=== PATIENT | male | born 1955 | race Caucasian/White ===

== ENCOUNTER 2021-03-09 00:13 | Observation (INO) | payer OTHER ==
[~2021-03-09] VITALS: Ht 177.8 cm; Wt 156.7 kg
[~2021-03-09 00:13] MED LIST: ACET325 PO; ACET500 PO; ALLO100 PO; ALLO300 PO; AMLO10 PO; AMLO5 PO; AMOCLA875 PO; ATEN100 PO; ATOR40TA PO; Aspir 8181 MG PO; Atenolol-Chlor1 EACH PO; CHLO25B PO; DECARA1250 MC1 PO; DOC250 PO; DOCU100 PO; Diflucan100 MG PO; FISH OIL 1,0001 EAC1 PO; FISH OIL 1,2001 EAC7 PO; Flonase 0.05% N16 GM; GLIP10 PO; GLUCOPHAGE1000 M1 PO; Hair, Skin & N1 EACH PO; JARDIANCE25 MG PO; LIDO5TO; LISI20 PO; MELA3 PO; METF500 PO; Multivitamin1 EAC1 PO; OSTEO BI-FLEX1 EAC2 PO; Omega 3 Fish O1 EACH PO; Prozac20 MG PO; SIMV40 PO; TERA5 PO; WARF10 PO; ZESTRIL40 MG PO
[2021-03-09 01:02] LABS: BASOPHILS ABSOLUTE AUTO 0.04 K/mm3 (0.00-0.23); BASOPHILS PERCENT AUTO 0 % (0-2); EOSINOPHILS ABSOLUTE AUTO 0.07 K/mm3 (0.00-0.68); EOSINOPHILS PERCENT AUTO 0 % (0-6); Hematocrit 29.8 % (37.0-53.0); Hemoglobin 9.6 g/dL (13.5-17.5); IMMATURE GRAN ABSOLUTE AUTO 0.09 K/mm3 (0.00-0.10); IMMATURE GRAN PERCENT AUTO 1 % (0-1); LYMPHOCYTES ABSOLUTE AUTO 0.91 K/mm3 (0.84-5.20); LYMPHOCYTES PERCENT AUTO 6 % (21-46); MONOCYTES ABSOLUTE AUTO 1.28 K/mm3 (0.16-1.47); MONOCYTES PERCENT AUTO 8 % (4-13); Mean Corpuscular HGB 28.1 pg (26.0-34.0); Mean Corpuscular HGB Conc 32.2 g/dL (31.5-36.5); Mean Corpuscular Volume 87 fL (80-100); Mean Platelet Volume 11.8 fL (9.1-12.4); NEUTROPHILS ABSOLUTE AUTO 14.09 K/mm3 (1.96-9.15); NEUTROPHILS PERCENT AUTO 86 % (41-73); Platelet Count 178 K/mm3 (150-400); RDW Coefficient Variation 13.8 % (11.7-14.2); RDW Standard Deviation 44.2 fL (35.1-46.3); Red Blood Cell Count 3.42 M/mm3 (4.30-5.90); White Blood Cell Count 16.48 K/mm3 (4.00-11.30)
[2021-03-09 01:22] LABS: Albumin, Blood 2.2 g/dL (3.4-5.0); Albumin/Globulin Ratio 0.5 (0.8-1.8); Bilirubin, Total 0.6 mg/dL (0.1-1.0); Bun/Creatinine Ratio 33.9 (12.0-20.0); Calcium, Blood 8.8 mg/dL (8.5-10.1); Creatinine, Blood 1.24 mg/dL (0.60-1.20); Globulin, Blood 4.2 g/dL (2.2-4.0); Potassium, Blood 4.1 mmol/L (3.5-5.5); Total Protein, Blood 6.4 g/dL (6.4-8.2); Troponin I 0.024 ng/mL (0.000-0.040)
[2021-03-09 03:30] LABS: Magnesium, Blood 1.7 mg/dL (1.6-2.4)
[2021-03-09 03:51] LABS: Influenza A, PCR NEGATIVE (NEGATIVE); Influenza B, PCR NEGATIVE (NEGATIVE); Resp Syncytial Virus, PCR NEGATIVE (NEGATIVE); SARS-Cov-2 (COVID-19) PCR, MMC NEGATIVE (NEGATIVE)
[2021-03-09 05:11] LABS: BASOPHILS ABSOLUTE AUTO 0.04 K/mm3 (0.00-0.23); BASOPHILS PERCENT AUTO 0 % (0-2); EOSINOPHILS ABSOLUTE AUTO 0.02 K/mm3 (0.00-0.68); EOSINOPHILS PERCENT AUTO 0 % (0-6); Hematocrit 27.5 % (37.0-53.0); IMMATURE GRAN ABSOLUTE AUTO 0.11 K/mm3 (0.00-0.10); IMMATURE GRAN PERCENT AUTO 1 % (0-1); LYMPHOCYTES ABSOLUTE AUTO 0.62 K/mm3 (0.84-5.20); LYMPHOCYTES PERCENT AUTO 4 % (21-46); MONOCYTES ABSOLUTE AUTO 1.59 K/mm3 (0.16-1.47); MONOCYTES PERCENT AUTO 10 % (4-13); Mean Corpuscular HGB 28.2 pg (26.0-34.0); Mean Corpuscular HGB Conc 32.7 g/dL (31.5-36.5); Mean Corpuscular Volume 86 fL (80-100); Mean Platelet Volume 11.5 fL (9.1-12.4); NEUTROPHILS ABSOLUTE AUTO 12.96 K/mm3 (1.96-9.15); NEUTROPHILS PERCENT AUTO 85 % (41-73); Platelet Count 175 K/mm3 (150-400); RDW Coefficient Variation 13.9 % (11.7-14.2); RDW Standard Deviation 43.4 fL (35.1-46.3); Red Blood Cell Count 3.19 M/mm3 (4.30-5.90); White Blood Cell Count 15.34 K/mm3 (4.00-11.30)
[2021-03-09 05:55] LABS: D-Dimer, Quantitative 11.24 mg/L FEU (0.00-0.52); International Normalized Ratio 1.18; Prothrombin Time Results 12.3 Sec (9.7-11.5)
[2021-03-09 06:18] LABS: Alanine Aminotransfer (ALT/SGP 89 U/L (12-78); Albumin, Blood 2.2 g/dL (3.4-5.0); Albumin/Globulin Ratio 0.6 (0.8-1.8); Alk Phos 78 U/L (50-136); Anion Gap 8 mmol/L (6-16); Aspartate Aminotrans (AST/SGOT 29 U/L (12-37); Bilirubin, Total 0.5 mg/dL (0.1-1.0); Blood Urea Nitrogen 38 mg/dL (8-24); Bun/Creatinine Ratio 34.2 (12.0-20.0); CO2, Blood 21 mmol/L (21-32); Calcium, Blood 8.6 mg/dL (8.5-10.1); Chloride, Blood 112 mmol/L (98-108); Creatinine, Blood 1.11 mg/dL (0.60-1.20); Globulin, Blood 3.4 g/dL (2.2-4.0); Glomerular Filtration Rate >60 (60-); Glucose, Blood 176 mg/dL (70-99); Potassium, Blood 4.1 mmol/L (3.5-5.5); Sodium, Blood 141 mmol/L (136-145); Total Protein, Blood 5.6 g/dL (6.4-8.2)
[2021-03-09 08:27] LABS: Troponin I 0.039 ng/mL (0.000-0.040)
[2021-03-09] MEDS ORDERED: ALLO100 PO (11:03)
[2021-03-09] MEDS ORDERED: AMLO10 PO (11:04)
[2021-03-09] MEDS ORDERED: ATEN100 PO (11:04)
[2021-03-09] MEDS ORDERED: CHLO25B PO (11:05)
[2021-03-09] MEDS ORDERED: Colace250 MG PO (11:06)
--- NOTE | 2021-03-09 11:54 | NUR ---
Echocardiogram using 0.60ml of Definity contrast performed.
--- NOTE | 2021-03-09 12:00 | NUR ---
CARE ASSUMPTION PATIENT ARRIVED FROM ED APROX 1000 AND WAS ABLE TO TRANSFER TO THE PCU BED FROM ED BED VIA A STAND BY ASSIST. PATIENT IS A/OX4. VSS. TELE AFIB. PATIENT REPORTS NO CHEST PAIN/PRESSURE, HEADACHES, NUMBNESS OR TINGLING IN LOWER EXTREMITIES, OR PAIN. PATIENT HAS SHORTNESS OF BREATH WITH EXERTION. PATIENT REPORTS NUMBNESS TO RIGHT HAND FROM A "BOTCHED CARPAL TUNNEL SURGERY". PATIENT HAS HEPARIN DRIP INFUSING AT 15 U/KG/HR. PATIENT HAS CARDIZEM DRIP INFUSING AT 5MLS/HR. BED IN LOWEST POSITION AND CALL LIGHT WITHIN REACH. WILL CONTINUE TO MONITOR AND PROVIDE CARE.
--- NOTE | 2021-03-09 13:58 | NUR ---
Upon receiving an admit referral for spiritual care, I visit patient. Patient tells me about his medical issues and the plan going forward. Patient talks about his of 43 years and his 3 grown daughters and his 3 grandchildren. Patient then shares about his personal struggles and inner pain and about his spiritual distress revolving around his [employer]. I listening empathically, hear confession, highlight patient's successes and provide spiritual guidance, grief/emotional support, gentle diet counselor and prayer. Patient responds well and shows signs of catharsis. I will continue to assist patient in processing the emotional/spiritual aspects of dealing with his medical issues.
[2021-03-09 16:30] LABS: Troponin I 0.043 ng/mL (0.000-0.040)
--- NOTE | 2021-03-09 17:11 | NUR ---
SHIFT SUMMARY NO ACUTE CHANGES THIS SHIFT. HEPARIN DRIP DISCONTINUED DUE TO ORAL ANTICOAGULANTS NOW. CARDIZEM INFUSING AT 5MLS/HR. CALL LIGHT WITHIN REACH AND BED IN LOWEST POSITION. WILL CONTINUE TO MONITOR AND PROVIDE CARE UNTIL HAND OFF WITH NEXT SHIFT.
[2021-03-09 18:59] LABS: Appearance, Urine Clear (Clear); Bilirubin, Urine Neg (Neg); Blood, Urine 1+ (Neg); Color, Urine Yellow (P-Yellow); Glucose Qualitative, Urine 4+ (Neg); Ketones, Urine Neg (Neg); Leukocyte Esterase, Urine Neg (Neg); Nitrite, Urine Neg (Neg); Protein, Urine 2+ (Neg); Specific Gravity, Urine 1.015 (1.003-1.022); Urobilinogen, Urine NORM (Normal)
[2021-03-09 19:44] LABS: Red Blood Cells, Urine 0-2 /hpf (0-2); White Blood Cells, Urine 0-2 /hpf (0-5)
[2021-03-09 19:46] LABS: Bacteria Few /hpf; Hyaline Casts 0-2 /lpf (0-2); Squamous Epithelial Cells Few /hpf (Few)
[2021-03-10 04:10] LABS: BASOPHILS ABSOLUTE AUTO 0.02 K/mm3 (0.00-0.23); BASOPHILS PERCENT AUTO 0 % (0-2); EOSINOPHILS ABSOLUTE AUTO 0.09 K/mm3 (0.00-0.68); EOSINOPHILS PERCENT AUTO 1 % (0-6); Hematocrit 28.7 % (37.0-53.0); Hemoglobin 9.1 g/dL (13.5-17.5); IMMATURE GRAN ABSOLUTE AUTO 0.07 K/mm3 (0.00-0.10); IMMATURE GRAN PERCENT AUTO 1 % (0-1); LYMPHOCYTES ABSOLUTE AUTO 0.65 K/mm3 (0.84-5.20); LYMPHOCYTES PERCENT AUTO 5 % (21-46); MONOCYTES ABSOLUTE AUTO 1.64 K/mm3 (0.16-1.47); MONOCYTES PERCENT AUTO 12 % (4-13); Mean Corpuscular HGB 27.4 pg (26.0-34.0); Mean Corpuscular HGB Conc 31.7 g/dL (31.5-36.5); Mean Corpuscular Volume 86 fL (80-100); Mean Platelet Volume 11.4 fL (9.1-12.4); NEUTROPHILS ABSOLUTE AUTO 10.93 K/mm3 (1.96-9.15); NEUTROPHILS PERCENT AUTO 82 % (41-73); Platelet Count 183 K/mm3 (150-400); RDW Coefficient Variation 13.8 % (11.7-14.2); RDW Standard Deviation 43.9 fL (35.1-46.3); Red Blood Cell Count 3.32 M/mm3 (4.30-5.90)
[2021-03-10 04:26] LABS: Anion Gap 7 mmol/L (6-16); Blood Urea Nitrogen 33 mg/dL (8-24); CO2, Blood 22 mmol/L (21-32); Calcium, Blood 8.8 mg/dL (8.5-10.1); Chloride, Blood 111 mmol/L (98-108); Creatinine, Blood 1.03 mg/dL (0.60-1.20); Glomerular Filtration Rate >60 (60-); Glucose, Blood 165 mg/dL (70-99); Sodium, Blood 140 mmol/L (136-145)
--- NOTE | 2021-03-10 05:49 | NUR ---
SHIFT SUMMARY NO ACUTE CHANGES. PT AXO. IN AFIB 100'S, STARTED ON CARDIZEM GTT @5, NOW @10. BP STABLE. PT WEARING 2-4LNC OR 2L BLEEDIN TO CPAP WITH SPO2 >94%. OTHERWISE, PT HAS BEEN RESTING THROUGHOUT SHIFT. FOUND A LITTLE BLOOD ON URINAL. A TINY OPEN CUT ON PT'S TESTICLE FOUND, NO NEW BLEEDING NOTED. OTHERWISE, BED ALARM IN PLACE. PT RESTING OFF AND ON.
--- NOTE | 2021-03-10 06:11 | NUR ---
ISOLATION INFECTION CONTROL CALLED TATING PT DID NOT NEED STOOL PANEL DUE TO NOT HAVING BM X24 HOURS.
--- NOTE | 2021-03-10 09:37 | NUR ---
Pt HR hitting 70-80s, titrated cardizem gtt from 10mg/hr to 5gm/hr.
--- NOTE | 2021-03-10 09:46 | NUR ---
Pt remained in 70s on 5mg/hr of cardizem, turned off gtt for now. HR 90-100s off the cardizem gtt. VSS on RA.
--- NOTE | 2021-03-10 10:58 | NUR ---
Pt remains off the cardizem gtt, HR 80s.
[2021-03-10] MEDS ORDERED: METO50 PO (12:21)
[2021-03-10] MEDS ORDERED: XARELTO15 MG PO (12:23)
[2021-03-10] MEDS ORDERED: XARELTO20 MG PO (12:24)
--- NOTE | 2021-03-10 13:43 | NUR ---
Shift note: Pt is A&Ox 4, pleasant with cares. VSS on RA during the day and CPAP at night. Tele: afib was 100-120 this AM on cardizem gtt 10mg/hr. Dose of metoprolol was increased this AM. Titrated off the cardizem gtt about 0945. HR was dropping into 70s on cardizem gtt. Now HR has been 80-100s off the cardizem gtt. CBGs 157-161, covered per sliding scale. PO xaralto given per orders. D/C home with as ride.
== END 2021-03-10 14:44 | disposition home or self-care (01) ==
LOC: ER 00:13 → ERHOLD 00:14 → PCU 00:14
PROVIDERS: Emergency Medicine; Family Medicine; Student in an Organized Health Care Education/Training Program; ADMIT Internal Medicine
DX: I48.91 Unspecified atrial fibrillation (principal); R19.7 Diarrhea, unspecified; I26.99 Other pulmonary embolism without acute cor pulmonale; R74.8 Abnormal levels of other serum enzymes; R94.4 Abnormal results of kidney function studies; R79.1 Abnormal coagulation profile; E11.9 Type 2 diabetes mellitus without complications; I10 Essential (primary) hypertension; D64.9 Anemia, unspecified; N40.0 Benign prostatic hyperplasia without lower urinary tract symptoms; I25.10 Atherosclerotic heart disease of native coronary artery without angina pectoris; Z95.2 Presence of prosthetic heart valve; Z95.1 Presence of aortocoronary bypass graft; Z87.891 Personal history of nicotine dependence; Z88.6 Allergy status to analgesic agent; Z88.8 Allergy status to other drugs, medicaments and biological substances; Z79.82 Long term (current) use of aspirin; Z79.899 Other long term (current) drug therapy; Z20.822 Contact with and (suspected) exposure to COVID-19
CPT/HCPCS: 0241U; 36415; 71046; 71260; 80048; 80053; 81001; 82550; 82947; 83605; 83735; 83880; 84145; 84484; 85025; 85379; 85520; 85610; 93005; 93010; 93306; 94660; 94761; 94762; 96376; A9270; C8929; G0378; J1644; J7030; Q9957; Q9967

== ENCOUNTER 2021-03-13 11:03 | Inpatient (IN) | payer OTHER, MEDICARE ==
[~2021-03-13] VITALS: Ht 180.3 cm; Wt 155.0 kg
[~2021-03-13 11:03] MED LIST changes: +Colace250 MG PO; +METO50 PO; +XARELTO15 MG PO; +XARELTO20 MG PO
[2021-03-13 12:58] LABS: BASOPHILS ABSOLUTE AUTO 0.05 K/mm3 (0.00-0.23); BASOPHILS PERCENT AUTO 0 % (0-2); EOSINOPHILS ABSOLUTE AUTO 0.06 K/mm3 (0.00-0.68); EOSINOPHILS PERCENT AUTO 0 % (0-6); Hematocrit 31.1 % (37.0-53.0); Hemoglobin 10.1 g/dL (13.5-17.5); IMMATURE GRAN ABSOLUTE AUTO 0.14 K/mm3 (0.00-0.10); IMMATURE GRAN PERCENT AUTO 1 % (0-1); LYMPHOCYTES ABSOLUTE AUTO 1.18 K/mm3 (0.84-5.20); LYMPHOCYTES PERCENT AUTO 7 % (21-46); MONOCYTES ABSOLUTE AUTO 1.75 K/mm3 (0.16-1.47); MONOCYTES PERCENT AUTO 11 % (4-13); Mean Corpuscular HGB 27.3 pg (26.0-34.0); Mean Corpuscular HGB Conc 32.5 g/dL (31.5-36.5); Mean Corpuscular Volume 84 fL (80-100); Mean Platelet Volume 11.3 fL (9.1-12.4); NEUTROPHILS ABSOLUTE AUTO 13.06 K/mm3 (1.96-9.15); NEUTROPHILS PERCENT AUTO 80 % (41-73); Platelet Count 236 K/mm3 (150-400); RDW Coefficient Variation 14.1 % (11.7-14.2); RDW Standard Deviation 43.4 fL (35.1-46.3); White Blood Cell Count 16.24 K/mm3 (4.00-11.30)
[2021-03-13 13:37] LABS: Alanine Aminotransfer (ALT/SGP 115 U/L (12-78); Albumin, Blood 2.4 g/dL (3.4-5.0); Albumin/Globulin Ratio 0.6 (0.8-1.8); Alk Phos 96 U/L (50-136); Anion Gap 10 mmol/L (6-16); Aspartate Aminotrans (AST/SGOT 35 U/L (12-37); Bilirubin, Total 0.5 mg/dL (0.1-1.0); Blood Urea Nitrogen 32 mg/dL (8-24); Bun/Creatinine Ratio 30.8 (12.0-20.0); CO2, Blood 23 mmol/L (21-32); Calcium, Blood 8.7 mg/dL (8.5-10.1); Chloride, Blood 105 mmol/L (98-108); Creatinine, Blood 1.04 mg/dL (0.60-1.20); Globulin, Blood 3.8 g/dL (2.2-4.0); Glomerular Filtration Rate >60 (60-); Glucose, Blood 167 mg/dL (70-99); Potassium, Blood 3.9 mmol/L (3.5-5.5); Sodium, Blood 138 mmol/L (136-145); Total Protein, Blood 6.2 g/dL (6.4-8.2)
--- NOTE | 2021-03-13 21:12 | NUR ---
REPORT RECIEVED FRO ZACHARY ED RN AT 2044. ZACHARY STS EKG JUST GOT DONE, PT APPEARS TO HAVE AFIB RVR. RELAYS CONCERN IF PT IS APPROPRIATE WITH MED STATUS SINCE DR. MCCOY HAS NOT BEEN INFORMED OF THE RESULT. NOTIFIED NURSING ELECTRONICS LEAD AND CHARGE NURSE. ZACHARY RN WILL NOTIFY ADMITING DR. MCCOY PRIOR TO TRANSFER. AWAITING FOR AN UPDATE.
--- NOTE | 2021-03-13 21:15 | NUR ---
2109 - ZACHARY RN CALLED BACK NOTIFY CHARGE NURSE PRABHAKAR THAT WILL CONTINUE TO TRANSFER PT TO MED STATUS IN SURG UNIT AT THIS TIME. ZACHARY ALSO MENTIONED PT HR UP TO 130'S WITH MOVEMENT AND WITH EXERTION DYSPNEA. REPEAT EKG TO BE DONE BY ER NURSE ZACHARY. WAITING FOR PT TO BE TRANSFERED IN ROOM.
[2021-03-14 01:47] LABS: Source, Urine Clean Catch
[2021-03-14 01:50] LABS: Bilirubin, Urine Neg (Neg); Blood, Urine Neg (Neg); Glucose Qualitative, Urine 4+ (Neg); Ketones, Urine Neg (Neg); Leukocyte Esterase, Urine Neg (Neg); Nitrite, Urine Neg (Neg); Protein, Urine Neg (Neg); Urobilinogen, Urine NORM (Normal)
[2021-03-14 01:58] LABS: Appearance, Urine Clear (Clear); Color, Urine Yellow (P-Yellow)
[2021-03-14 04:46] LABS: BASOPHILS ABSOLUTE AUTO 0.03 K/mm3 (0.00-0.23); BASOPHILS PERCENT AUTO 0 % (0-2); EOSINOPHILS ABSOLUTE AUTO 0.06 K/mm3 (0.00-0.68); EOSINOPHILS PERCENT AUTO 0 % (0-6); Hematocrit 29.7 % (37.0-53.0); Hemoglobin 9.8 g/dL (13.5-17.5); IMMATURE GRAN ABSOLUTE AUTO 0.15 K/mm3 (0.00-0.10); IMMATURE GRAN PERCENT AUTO 1 % (0-1); LYMPHOCYTES ABSOLUTE AUTO 1.34 K/mm3 (0.84-5.20); LYMPHOCYTES PERCENT AUTO 8 % (21-46); MONOCYTES ABSOLUTE AUTO 1.83 K/mm3 (0.16-1.47); MONOCYTES PERCENT AUTO 12 % (4-13); Mean Corpuscular HGB 27.7 pg (26.0-34.0); Mean Corpuscular Volume 84 fL (80-100); Mean Platelet Volume 10.7 fL (9.1-12.4); NEUTROPHILS PERCENT AUTO 79 % (41-73); Platelet Count 207 K/mm3 (150-400); RDW Standard Deviation 42.9 fL (35.1-46.3); Red Blood Cell Count 3.54 M/mm3 (4.30-5.90); White Blood Cell Count 15.91 K/mm3 (4.00-11.30)
[2021-03-14 05:39] LABS: Alanine Aminotransfer (ALT/SGP 98 U/L (12-78); Albumin, Blood 2.4 g/dL (3.4-5.0); Albumin/Globulin Ratio 0.7 (0.8-1.8); Alk Phos 90 U/L (50-136); Anion Gap 12 mmol/L (6-16); Aspartate Aminotrans (AST/SGOT 29 U/L (12-37); Bilirubin, Total 0.5 mg/dL (0.1-1.0); Blood Urea Nitrogen 34 mg/dL (8-24); Bun/Creatinine Ratio 32.1 (12.0-20.0); CO2, Blood 23 mmol/L (21-32); Calcium, Blood 8.5 mg/dL (8.5-10.1); Chloride, Blood 105 mmol/L (98-108); Creatinine, Blood 1.06 mg/dL (0.60-1.20); Globulin, Blood 3.6 g/dL (2.2-4.0); Glomerular Filtration Rate >60 (60-); Glucose, Blood 151 mg/dL (70-99); Potassium, Blood 3.5 mmol/L (3.5-5.5); Sodium, Blood 140 mmol/L (136-145)
--- NOTE | 2021-03-14 05:48 | NUR ---
ARRIVED FROM ED TO MISSY UNIT AT 2120 PT TRANSPORTED VIA STRETCHER. AOX4. WEARS MASK APPEARS COMFORTABLE AND NONDISTRESSED. PT STARTED EXPIRIENCING DYSPNEA WITH EXERTION UPON TRANSFER TO BED. PT ABLE TO TRANSFER HIMSELF, SBA. O2 SATS HAS BEEN WNL. VSS EXCEPT FOR HR ON 110-120'S. TELE IN PLACED. AFIB/AFLUTTER AT 120'S UPON ARRIVAL. PT DENIES CHEST PAIN, NUMBNESS, TINGLING SENSATION, NAUSEA AND VOMITING. IV ON L AC FLUSING AND PATENT. PT USE URINAL WITH ASSISTANCE BECAUSE HE WAS UNABLE TO REACH DOWN. CPAP ORDER HX RENE. MEDS RECONCILED WITH OVER THE PHONE. REORIENT IN ROOM. CALL LIGHT WITHIN REACH. WILL CONTINUE TO MONITOR PATIENT.
--- NOTE | 2021-03-14 05:57 | NUR ---
SHIFT SUMMARY NO ACUTE CHANGES SINCE PT CAME IN TO UNIT (SEE PREVIOUS NOTE). VSS. PT DENIES CP AND SOB. TELE IN PLACED, AFIB AT 120'S PER TELE. PT HAS BEEN RESTING COMFORTABLE IN BED. USE CALL LIGHT APPROPRIATELY. VOID ADEQUATELY WITHOUT ANY ISSUE. USE URINAL TO VOID. PT WEARS CPAP AT NIGHT. REPORTS FEELING UNCOMFORTABLE WITH HOSPITAL CPAP, UNABLE TO SLEEP WELL. PT REQUEST 2L N/C THIS MORNING FOR SLEEP.CALL LIGHT WITHIN REACH. WILL PROVIDE REPORT TO ONCOMING NURSE.
--- NOTE | 2021-03-14 13:31 | NUR ---
Echocardiogram completed.
[2021-03-15 04:28] LABS: BASOPHILS ABSOLUTE AUTO 0.04 K/mm3 (0.00-0.23); BASOPHILS PERCENT AUTO 0 % (0-2); EOSINOPHILS ABSOLUTE AUTO 0.22 K/mm3 (0.00-0.68); EOSINOPHILS PERCENT AUTO 2 % (0-6); Hematocrit 28.8 % (37.0-53.0); Hemoglobin 9.3 g/dL (13.5-17.5); IMMATURE GRAN ABSOLUTE AUTO 0.13 K/mm3 (0.00-0.10); IMMATURE GRAN PERCENT AUTO 1 % (0-1); LYMPHOCYTES ABSOLUTE AUTO 1.11 K/mm3 (0.84-5.20); LYMPHOCYTES PERCENT AUTO 8 % (21-46); MONOCYTES ABSOLUTE AUTO 1.78 K/mm3 (0.16-1.47); MONOCYTES PERCENT AUTO 13 % (4-13); Mean Corpuscular HGB 27.8 pg (26.0-34.0); Mean Corpuscular HGB Conc 32.3 g/dL (31.5-36.5); Mean Corpuscular Volume 86 fL (80-100); Mean Platelet Volume 10.4 fL (9.1-12.4); NEUTROPHILS ABSOLUTE AUTO 9.97 K/mm3 (1.96-9.15); NEUTROPHILS PERCENT AUTO 75 % (41-73); Platelet Count 216 K/mm3 (150-400); RDW Coefficient Variation 14.1 % (11.7-14.2); RDW Standard Deviation 43.9 fL (35.1-46.3); Red Blood Cell Count 3.35 M/mm3 (4.30-5.90); White Blood Cell Count 13.25 K/mm3 (4.00-11.30)
[2021-03-15 04:46] LABS: Alanine Aminotransfer (ALT/SGP 88 U/L (12-78); Albumin, Blood 2.2 g/dL (3.4-5.0); Albumin/Globulin Ratio 0.6 (0.8-1.8); Alk Phos 79 U/L (50-136); Anion Gap 8 mmol/L (6-16); Aspartate Aminotrans (AST/SGOT 27 U/L (12-37); Bilirubin, Total 0.4 mg/dL (0.1-1.0); Blood Urea Nitrogen 33 mg/dL (8-24); Bun/Creatinine Ratio 35.1 (12.0-20.0); CO2, Blood 27 mmol/L (21-32); Calcium, Blood 9.1 mg/dL (8.5-10.1); Chloride, Blood 105 mmol/L (98-108); Creatinine, Blood 0.94 mg/dL (0.60-1.20); Glomerular Filtration Rate >60 (60-); Glucose, Blood 140 mg/dL (70-99); Potassium, Blood 3.5 mmol/L (3.5-5.5); Sodium, Blood 140 mmol/L (136-145); Total Protein, Blood 6.2 g/dL (6.4-8.2)
--- NOTE | 2021-03-15 04:56 | NUR ---
PT IS ALERT AND ORIENTED X4. NO CHEST PAIN. NO SOB. VOIDING. VSS. TELE: A FIB ON THE LOW 100S. LAST VS, HR WAS 110. LEFT AC IV INFILTRATED AND MIDLINE WAS PLACED IN. PT IS AD CLIFFORD BASELINE. NEEDS ASSISTANCE WITH URINAL.
[2021-03-15 05:04] LABS: Vancomycin, Trough 23.1 ug/mL (5.0-10.0)
--- NOTE | 2021-03-16 04:26 | NUR ---
PT IS ALERT AND ORIENTED X4. TELE: A FIB 90s. NO CHEST PAIN. NO SOB. NO C/O PAIN. NPO SINCE MIDNIGHT. 3L OF 02; SATS MID 90s. VOIDING. VSS. HEMATOLOGY CALLED WITH BLOOD CULTURE RESULTS OF GRAM POSITIVE COCCI IN CLUSTERS FROM 03/13/21.
[2021-03-16 05:02] LABS: BASOPHILS ABSOLUTE AUTO 0.04 K/mm3 (0.00-0.23); BASOPHILS PERCENT AUTO 0 % (0-2); EOSINOPHILS ABSOLUTE AUTO 0.23 K/mm3 (0.00-0.68); EOSINOPHILS PERCENT AUTO 2 % (0-6); Hematocrit 28.5 % (37.0-53.0); Hemoglobin 9.1 g/dL (13.5-17.5); IMMATURE GRAN ABSOLUTE AUTO 0.13 K/mm3 (0.00-0.10); IMMATURE GRAN PERCENT AUTO 1 % (0-1); LYMPHOCYTES ABSOLUTE AUTO 1.35 K/mm3 (0.84-5.20); LYMPHOCYTES PERCENT AUTO 11 % (21-46); MONOCYTES ABSOLUTE AUTO 1.42 K/mm3 (0.16-1.47); MONOCYTES PERCENT AUTO 12 % (4-13); Mean Corpuscular HGB 27.3 pg (26.0-34.0); Mean Corpuscular HGB Conc 31.9 g/dL (31.5-36.5); Mean Corpuscular Volume 86 fL (80-100); Mean Platelet Volume 10.3 fL (9.1-12.4); NEUTROPHILS PERCENT AUTO 74 % (41-73); Platelet Count 215 K/mm3 (150-400); RDW Coefficient Variation 14.1 % (11.7-14.2); RDW Standard Deviation 44.1 fL (35.1-46.3); Red Blood Cell Count 3.33 M/mm3 (4.30-5.90); White Blood Cell Count 11.97 K/mm3 (4.00-11.30)
[2021-03-16 05:22] LABS: Albumin, Blood 2.1 g/dL (3.4-5.0); Anion Gap 6 mmol/L (6-16); Blood Urea Nitrogen 29 mg/dL (8-24); Bun/Creatinine Ratio 33.7 (12.0-20.0); CO2, Blood 27 mmol/L (21-32); Calcium, Blood 8.7 mg/dL (8.5-10.1); Chloride, Blood 106 mmol/L (98-108); Creatinine, Blood 0.86 mg/dL (0.60-1.20); Glomerular Filtration Rate >60 (60-); Glucose, Blood 155 mg/dL (70-99); Magnesium, Blood 1.8 mg/dL (1.6-2.4); Phosphorus, Blood 3.1 mg/dL (2.5-4.9); Potassium, Blood 3.6 mmol/L (3.5-5.5); Sodium, Blood 139 mmol/L (136-145)
[2021-03-16 14:35] LABS: Vancomycin, Trough 14.3 ug/mL (5.0-10.0)
--- NOTE | 2021-03-16 16:38 | NUR ---
SHIFT SUMMARY: BACTEREMIA PATIENT IS ALERT AND ORIENTED X4. VS ARE WNL AND IS ON 2L NC OXYGEN. PATIENT IS >90% PER BIOX. PATIENT WOULD LIKE TO TRY CPAP TONIGHT WITH FLOW ADJUSTMENTS MADE WITH RT. HE IS TOLERATING PO INTAKE AND IS VOIDING. PATIENT DENIES PAIN THROUGHOUT SHIFT. PATIENT IS CURRENTLY SITTING UP IN A CHAIR WITH SITTING IN A CHAIR NEXT TO HIM. HE IS A SBA WITH AMBULATION. CALLS APPROPRIATELY. CALL LIGHT WITHIN REACH. THE PLAN IS TO HAVE THE [facility] TOMORROW SINCE [facility]ENTER WAS TOO BUSY TODAY. HE WILL BE NPO AT MIDNIGHT BUT CAN HAVE A LIGHT BREAKFAST IN THE MORNING PER SUPERVISOR WATERWORKS SINCE IT WONT BE UNTIL 1400.
--- NOTE | 2021-03-16 19:48 | NUR ---
RIGHT UPPER ARM POWERGLIDE INFUSING WELL.
--- NOTE | 2021-03-17 03:43 | NUR ---
SHIFT SUMMARY: RECEIVED PT. AOX4, DOUBLE LUMEN RIGHT UPPER ARM POWERGLIDE INFUSING WELL, DENIES ANY PAIN. NEEDED ASSISTANCE IN USING URINAL. ON TELEMETRY RUNNING SR AT 91 PER ENVIRONMENTAL COMPLIANCE OFFICER. PT. REFUSED TO USE CPAP TO SLEEP & STATED " I AM FINE WITH THIS " REFERRING TO O2 3 L VIA NC. NPO IMPLEMENTED BEGINNING MIDNIGHT, PT. VERBALIZED UNDERSTANDING. PT. USES CALL LIGHT FOR ANY NEED, CLWR. NO NEW ISSUES NOTED, WILL CONTINUE TO MONITOR.
--- NOTE | 2021-03-17 04:00 | NUR ---
SHIFT SUMMARY: PATIENT IA AOX4, POD3, R HIP WITH AQUACEL DRESSING ON C/D/I. PT. NOT WEARING SLING ANYMORE TO RIGHT ARM PER MD ORDER.COMPLAINTS OF PAIN MEDICATED,SEE EMAR.WOUND VAC TO L LOWER EXTREMITY S/P I & D WAS CHANGED BY DR. VOSS PER MAGANOHDAVION RN. BILATERAL HEELS & SACRAL REDNESS WITH MEPILEX ON.O2 SAT ON HIGH 90S ON 3L O2 VIA NC.PT. USED BEDPAN FOR VOIDING WITHOUT PROBLEMS. DOUBLE LUMEN LEFT UPPER ARM POWERGLIDE INFUSING WELL. ABLE TO MAKE NEEDS KNOWN & USES CALL LIGHT, CLWR.NO NEW ISSUES NOTED.WILL CONTINUE TO MONITOR.
[2021-03-17 06:16] LABS: BASOPHILS ABSOLUTE AUTO 0.04 K/mm3 (0.00-0.23); BASOPHILS PERCENT AUTO 0 % (0-2); EOSINOPHILS ABSOLUTE AUTO 0.22 K/mm3 (0.00-0.68); EOSINOPHILS PERCENT AUTO 2 % (0-6); Hematocrit 28.1 % (37.0-53.0); Hemoglobin 9.2 g/dL (13.5-17.5); IMMATURE GRAN ABSOLUTE AUTO 0.09 K/mm3 (0.00-0.10); IMMATURE GRAN PERCENT AUTO 1 % (0-1); LYMPHOCYTES ABSOLUTE AUTO 1.16 K/mm3 (0.84-5.20); LYMPHOCYTES PERCENT AUTO 11 % (21-46); MONOCYTES ABSOLUTE AUTO 1.41 K/mm3 (0.16-1.47); MONOCYTES PERCENT AUTO 14 % (4-13); Mean Corpuscular HGB Conc 32.7 g/dL (31.5-36.5); Mean Corpuscular Volume 85 fL (80-100); Mean Platelet Volume 10.4 fL (9.1-12.4); NEUTROPHILS ABSOLUTE AUTO 7.56 K/mm3 (1.96-9.15); NEUTROPHILS PERCENT AUTO 72 % (41-73); Platelet Count 217 K/mm3 (150-400); RDW Coefficient Variation 14.3 % (11.7-14.2); RDW Standard Deviation 44.6 fL (35.1-46.3); Red Blood Cell Count 3.29 M/mm3 (4.30-5.90); White Blood Cell Count 10.48 K/mm3 (4.00-11.30)
[2021-03-17 06:36] LABS: Anion Gap 5 mmol/L (6-16); Blood Urea Nitrogen 25 mg/dL (8-24); Bun/Creatinine Ratio 28.5 (12.0-20.0); CO2, Blood 29 mmol/L (21-32); Chloride, Blood 107 mmol/L (98-108); Creatinine, Blood 0.88 mg/dL (0.60-1.20); Glomerular Filtration Rate >60 (60-); Glucose, Blood 151 mg/dL (70-99); Potassium, Blood 3.6 mmol/L (3.5-5.5); Sodium, Blood 141 mmol/L (136-145)
[2021-03-17 06:39] LABS: Gentamicin, Trough 1.5 ug/mL (0.0-1.9)
[2021-03-17 12:16] LABS: Gentamicin, Peak 4.9 ug/mL (4.0-8.0)
[2021-03-17 12:19] LABS: Influenza A, PCR NEGATIVE (NEGATIVE); Influenza B, PCR NEGATIVE (NEGATIVE); Resp Syncytial Virus, PCR NEGATIVE (NEGATIVE); SARS-Cov-2 (COVID-19) PCR, MMC NEGATIVE (NEGATIVE)
--- NOTE | 2021-03-17 12:20 | NUR ---
PT TO [facility] VIA W/C
--- NOTE | 2021-03-17 14:16 | NUR ---
DR. DHALIWAL GAVE SEDATION HANDOFF REPORT.
--- NOTE | 2021-03-17 14:25 | NUR ---
PT AWAKE AND TALKING AT THIS TIME.
--- NOTE | 2021-03-17 14:27 | NUR ---
HANDOFF REPORT GIVEN TO ZEN BRAUN NO QUESTIONS
--- NOTE | 2021-03-17 14:45 | NUR ---
RETURN FROM RETURNED GOODS REPAIRER FROM [facility] BY [facility]. [facility] SHALONDA. SBA TO AMBULATE TO CHAIR. VSS. LUNG SOUNDS DIM. STRONG COUGH. TELE IN PLACE. ICE CHIPS GIVE. WILL ADVANCE DIET SLOWLY PER DR OCAMPO.
--- NOTE | 2021-03-17 18:23 | NUR ---
SHIFT SUMMARY NPO PRIOR TO [facility]. DIET SLOWLY ADVANCED POST [facility]. TOLERATING WELL. DENIES NEEDS. ABX INFUSED ORDERED.
--- NOTE | 2021-03-18 05:15 | NUR ---
SHIFT SUMMARY: PT A&O X4. VS WNL THIS SHIFT. A/FIB IN THE 90'S PER HUMAN RESOURCES DESIGNATE. PT DENIES CP. PT DID COMPLAIN OF SOB IN BEGINNING OF SHIFT. O2 REMAINED STABLE ON RA. LUNGS CLEAR AND DIMINISHED THROUGHOUT. CPAP PLACED WHICH IMPROVED BREATHING. PT ALSO C/O AN INTERMITTENT PRODUCTIVE COUGH THAT HE HAS HAD FOR A FEW WEEKS NOW. PT SBA IN ROOM. NEEDING ASSISTANCE WITH URINAL. DEBORAH PO AND DENIES N/V. IV ABX AND FLUIDS TKO PER EMAR.
[2021-03-18 14:34] LABS: Vancomycin, Trough 12.2 ug/mL (5.0-10.0)
--- NOTE | 2021-03-18 19:26 | NUR ---
SHIFT SUMMARY PT HAS DONE WELL TODAY. SAT UP IN CHAIR FOR MOST OF DAY. USED IS APPROP. HAS COUGH BUT DENIES PRODUCTIVE. EATING, DRINKING, VOIDING WELL. PLEASANT & COOPERATIVE. IV ABX GIVEN SCHED.
--- NOTE | 2021-03-19 04:37 | NUR ---
SHIFT SUMMARY: PATIENT AOX4, RIGHT UPPER ARM POWERGLIDE INFUSING WELL. VOIDING IN URINAL WITH CLEAR BIBI URINE WITH ASSISTANCE. SLEPT WELL IN RECLINER WITH O2 2 L VIA NC, REFUSED TO USE CPAP. IV ANTIBIOTICS TOLERATED WELL. NO NEW UNUSUALITIES NOTED.
--- NOTE | 2021-03-19 18:35 | NUR ---
SHIFT SUMMARY S/P BACTEREMIA, ABX ORDERED, INDEPENDENT IN ROOM, TOLERATING PO, HR IMPROVING, VSS, VOIDING IN URINAL. NO ACUTE EVENTS THIS SHIFT, CALL LIGHT IN REACH, WILL CTM AND REPORT TO DAY RN.
[2021-03-20 04:09] LABS: Hematocrit 28.8 % (37.0-53.0); Mean Corpuscular HGB 26.9 pg (26.0-34.0); Mean Corpuscular HGB Conc 31.3 g/dL (31.5-36.5); Mean Corpuscular Volume 86 fL (80-100); Mean Platelet Volume 10.6 fL (9.1-12.4); Platelet Count 165 K/mm3 (150-400); RDW Coefficient Variation 14.4 % (11.7-14.2); RDW Standard Deviation 44.7 fL (35.1-46.3); Red Blood Cell Count 3.35 M/mm3 (4.30-5.90); White Blood Cell Count 12.36 K/mm3 (4.00-11.30)
[2021-03-20 04:42] LABS: Anion Gap 7 mmol/L (6-16); Blood Urea Nitrogen 22 mg/dL (8-24); Bun/Creatinine Ratio 26.2 (12.0-20.0); CO2, Blood 27 mmol/L (21-32); Calcium, Blood 8.5 mg/dL (8.5-10.1); Chloride, Blood 106 mmol/L (98-108); Creatinine, Blood 0.84 mg/dL (0.60-1.20); Glomerular Filtration Rate >60 (60-); Glucose, Blood 152 mg/dL (70-99); Potassium, Blood 3.9 mmol/L (3.5-5.5); Sodium, Blood 140 mmol/L (136-145)
--- NOTE | 2021-03-20 05:29 | NUR ---
SLEPT WELL THROUGH NIGHT. NO ACUTE DISTRESS NOTED, RESPIRATIONS EVEN AND UNLABORED. DENIED PAIN OR DISCOMFORT. SAFETY MAINTAINED, CALL VALENCIA IN REACH
--- NOTE | 2021-03-20 18:37 | NUR ---
SHIFT SUMMARY A/O X4, VSS, TOLERATING PO, DENIES PAIN T/O SHIFT, UP TO CHAIR, AMBULATES c SBA, STILL REPORTING SOME SOB c EXERTION BUT ABLE TO WALK SHORT DISTANCES IN ROOM. NO ACUTE EVENTS THIS SHIFT, CALL LIGHT IN REACH, WILL CTM AND REPORT TO NOC RN.
[2021-03-21 05:23] LABS: Hematocrit 26.5 % (37.0-53.0); Hemoglobin 8.4 g/dL (13.5-17.5); Mean Corpuscular HGB 26.9 pg (26.0-34.0); Mean Corpuscular HGB Conc 31.7 g/dL (31.5-36.5); Mean Corpuscular Volume 85 fL (80-100); Mean Platelet Volume 10.6 fL (9.1-12.4); Platelet Count 145 K/mm3 (150-400); RDW Coefficient Variation 14.6 % (11.7-14.2); RDW Standard Deviation 44.6 fL (35.1-46.3); Red Blood Cell Count 3.12 M/mm3 (4.30-5.90)
[2021-03-21 05:44] LABS: Alanine Aminotransfer (ALT/SGP 41 U/L (12-78); Albumin/Globulin Ratio 0.5 (0.8-1.8); Alk Phos 73 U/L (50-136); Anion Gap 6 mmol/L (6-16); Aspartate Aminotrans (AST/SGOT 19 U/L (12-37); Bilirubin, Total 0.7 mg/dL (0.1-1.0); Blood Urea Nitrogen 19 mg/dL (8-24); Bun/Creatinine Ratio 23.3 (12.0-20.0); CO2, Blood 28 mmol/L (21-32); Calcium, Blood 7.8 mg/dL (8.5-10.1); Chloride, Blood 106 mmol/L (98-108); Creatinine, Blood 0.81 mg/dL (0.60-1.20); Globulin, Blood 3.9 g/dL (2.2-4.0); Glomerular Filtration Rate >60 (60-); Glucose, Blood 152 mg/dL (70-99); Potassium, Blood 3.8 mmol/L (3.5-5.5); Sodium, Blood 140 mmol/L (136-145); Total Protein, Blood 5.9 g/dL (6.4-8.2)
--- NOTE | 2021-03-21 05:55 | NUR ---
SUMMARY PT REQUESTED PAIN MEDS TONIGHT FOR GENERALIZED PAIN AND I GAVE OXYCODONE PER NEW ORDER RECEIVED,PT SLEPT AFTER AND W/A VERB PAIN RELIEF,PT SLEPT IN RECLINER AT BEDSIDE THIS IS HIS PREFERANCE. PT HAS HX SLEEP APNEA, ALTHOUGH HE VERB HE WAS UNABLE TO TOLERATE OUR CPAP. PT IS WEARING 2L N/C INSTEAD.
--- NOTE | 2021-03-21 17:16 | NUR ---
SHIFT SUMMARY PT ALERT AND ORIENTED. VS STABLE. HR WAS AFIB 100'S UNTIL TELE DISCONTINUED THIS SHIFT. BP STABLE. O2 SATS HAVE REMAINED ABOVE 90% ON RA. PT DENIES ANY PAIN THIS SHIFT. PT UP TO RECLINER AND ABLE TO TOLERATE SHOWER TODAY. WILL CONTINUE TO MONITOR AND REPORT TO ONCOMING RN.
[2021-03-21 21:36] LABS: Gentamicin, Trough 0.5 ug/mL (0.0-1.9)
--- NOTE | 2021-03-22 03:34 | NUR ---
SHIFT SUMMARY: PT. AOX4, R UPPER ARM POWERGLIDE INFUSING WELL. NEEDS ASSISTANCE IN VOIDING USING A URINAL RELATED TO ANATOMICAL PRESENTATION OF PENIS. 2344 PT. COMPLAINTS OF SOB, V/S WNL, O2 SAT OF 99 % ON 3 L O2, PT. STATED " I FEEL BETTER NOW" AFTER KNOWING HIS V/S. COMPLAINTS OF PAIN TO IN BETWEEN SHOULDERS MEDICATED, SEE EMAR. PT. SLEEPING WELL, REFUSED TO USE SCD & CPAP. AMBULATED WITHIN THE ROOM ON SBA. NO OTHER NEW UNUSUALITIES NOTED. WILL CONTINUE TO MONITOR.
--- NOTE | 2021-03-22 08:02 | NUR ---
PT LYING IN BED 2L O2 VIA NC NOTED IN PLACE, DENIES ANY SOB, ENCOURAGED OOB TO TO CHAIR FOR MEALS, CONT. TO MONITOR FOR ANY CHANGES.
--- NOTE | 2021-03-22 18:20 | NUR ---
SUMMARY OOB TO CHAIR MOST OF THE AFTERNOON AND AMBULATING TO THE BATHROOM, TOLERATED WELL, DENIES ANY SOB OR PAIN, TOLERATING DIET WELL, VSS, NO ACUTE CHANGES THIS SHIFT.
[2021-03-23 00:33] LABS: Gentamicin, Peak 2.9 ug/mL (4.0-8.0)
--- NOTE | 2021-03-23 02:57 | NUR ---
SHIFT SUMMARY: PT. AOX4, PREFERS TO STAY IN THE RECLINER THAN IN BED, NEEDING ASSISTANCE WITH HOLDING THE URINAL TO VOID. R UPPER ARM POWERGLIDE INFUSING & CAN DRAW BLOOD FROM.CALLS FOR HELP USING CALL LIGHT.IV ANTIBIOTIC TOLERATED WELL. REFUSED TO USE CPAP & SCDS. O2 SAT ON MID 90S WITH 2L O2 VIA NC. PAIN IN BETWEEN SHOULDERS MEDICATED, SEE EMAR. NO OTHER COMPLAINTS THROUGHOUT THE NIGHT.
--- NOTE | 2021-03-23 18:25 | NUR ---
PATIENT CURRENTLY SITTING UP IN RECLINING CHAIR WITH NO SIGNS OR SYMPTOMS ACUTE DISTRESS NOTED. CALL LIGHT AND WATER IN EASY REACH. ABLE TO MAKE NEEDS AND WANTS KNOWN. NO COMPLAINTS OF PAIN VOICED TODAY. PATIENT REMAINS ON 2L O2 PER NC. NO COMPLAINTS OF SOB TODAY. AAO X 4. WILL MONITOR.
[2021-03-24 04:40] LABS: Hematocrit 27.2 % (37.0-53.0); Hemoglobin 8.5 g/dL (13.5-17.5); Mean Corpuscular HGB 26.7 pg (26.0-34.0); Mean Corpuscular HGB Conc 31.3 g/dL (31.5-36.5); Mean Corpuscular Volume 86 fL (80-100); Mean Platelet Volume 11.3 fL (9.1-12.4); Platelet Count 120 K/mm3 (150-400); RDW Coefficient Variation 14.3 % (11.7-14.2); RDW Standard Deviation 44.7 fL (35.1-46.3); Red Blood Cell Count 3.18 M/mm3 (4.30-5.90); White Blood Cell Count 8.62 K/mm3 (4.00-11.30)
--- NOTE | 2021-03-24 04:48 | NUR ---
SUMMARY PT ONLY ISSUE IS DIFFICULTY SLEEPING. PT MAY BENEFIT FROM A SLEEP AID. PT HAD NO OTHER ISSUES NOTED. PT UP WATCHING TV AND IN NO DISTRESS. CALL LIGHT IN REACH.
[2021-03-24 04:56] LABS: Anion Gap 6 mmol/L (6-16); Blood Urea Nitrogen 18 mg/dL (8-24); Bun/Creatinine Ratio 18.5 (12.0-20.0); CO2, Blood 29 mmol/L (21-32); CPK Creatine Kinase 16 U/L (39-308); Calcium, Blood 8.7 mg/dL (8.5-10.1); Chloride, Blood 104 mmol/L (98-108); Creatinine, Blood 0.98 mg/dL (0.60-1.20); Glomerular Filtration Rate >60 (60-); Glucose, Blood 146 mg/dL (70-99); Potassium, Blood 3.6 mmol/L (3.5-5.5); Sodium, Blood 139 mmol/L (136-145)
--- NOTE | 2021-03-25 04:40 | NUR ---
SHIFT SUMMARY A/OX4, 1 ASSIST WITH USE OF URINAL. DENIES PAIN. 2L 02 AT BASELINE. VSS, NO ACUTE CHANGES AT THIS TIME. BED IN LOWEST POSITION WITH CALL LIGHT IN REACH. WILL CONTINUE TO MONITOR AND REPORT TO ONCOMING RN.
--- NOTE | 2021-03-25 17:41 | NUR ---
PATIENT CURRENTLY SITTING UP IN CHAIR EATING HIS MEAL. NO SIGNS OR SYMPTOMS ACUTE DISTRESS NOTED. CALL LIGHT AND WATER IN EASY REACH. ABLE TO MAKE NEEDS AND WANTS KNOWN. AAOX4. PATIENT [facility] ANTIBIOTIC THERAPY. HE WILL BE GETTING A PICC LINE BEFORE DC. PATIENT IS AWARE. HE IS IN AGREEMENT OF PLAN. NO COMPLAINTS OF PAIN TODAY. REMAINS ON 2L O2 PER NC. TOLERATING WELL. WILL MONITOR.
--- NOTE | 2021-03-26 06:47 | NUR ---
SUMMARY PT PLANS FOR TRANSFER TO [facility] TODAY.PENDING PICC LINE PLACEMENT.
[2021-03-26 09:57] LABS: Influenza A, PCR NEGATIVE (NEGATIVE); Influenza B, PCR NEGATIVE (NEGATIVE); Resp Syncytial Virus, PCR NEGATIVE (NEGATIVE); SARS-Cov-2 (COVID-19) PCR, MMC NEGATIVE (NEGATIVE)
--- NOTE | 2021-03-26 12:21 | NUR ---
DISCHARGE: REPORT CALLED TO GRETCHEN AT THE [facility] AT THIS TIME. PATIENT UPDATED ON TIME OF COMPARATIVE SOCIOLOGY PROFESSOR. GRETCHEN AWARE OF PATIENT BEING PICKED UP AT 1400. NO SIGNS OR SYMPTOMS ACUTE DISTRESS NOTED AT THIS TIME. PICC LINE PLACED AND GOOD TO USE PER PICC NURSE. AAOX4. ABLE TO MAKE NEEDS AND WANTS KNOWN. AWAITING ARRIVAL OF TRANSPORTATION.
--- NOTE | 2021-03-26 14:58 | NUR ---
PATIENT LEFT VIA WHEEL CHAIR VAN FROM THE [facility]. ALL PERSONAL BELONGINGS WITH PATIENT.
== END 2021-03-26 15:12 | disposition home or self-care (01) | DRG 871 ==
LOC: ER 11:03 → ERHOLD 11:04 → SURS 11:04
PROVIDERS: Family Medicine; Hospitalist; Internal Medicine Infectious Disease; Internal Medicine Interventional Cardiology; Physician Assistant; Student in an Organized Health Care Education/Training Program; ADMIT Internal Medicine
DX: A41.1 Sepsis due to other specified staphylococcus (principal); J96.01 Acute respiratory failure with hypoxia; I26.99 Other pulmonary embolism without acute cor pulmonale; I33.0 Acute and subacute infective endocarditis; Z66 Do not resuscitate; I48.91 Unspecified atrial fibrillation; I10 Essential (primary) hypertension; R65.20 Severe sepsis without septic shock; N40.0 Benign prostatic hyperplasia without lower urinary tract symptoms; Z20.822 Contact with and (suspected) exposure to COVID-19; E11.9 Type 2 diabetes mellitus without complications; I25.10 Atherosclerotic heart disease of native coronary artery without angina pectoris; Z88.6 Allergy status to analgesic agent; Z88.8 Allergy status to other drugs, medicaments and biological substances; Z95.1 Presence of aortocoronary bypass graft; Z98.890 Other specified postprocedural states; Z79.01 Long term (current) use of anticoagulants; Z95.2 Presence of prosthetic heart valve
CPT/HCPCS: 0241U; 36415; 36416; 36569; 71045; 71046; 80048; 80053; 80069; 80170; 80202; 81003; 82550; 82947; 83605; 83735; 83880; 84145; 85025; 85027; 87040; 93005; 93010; 93308; 93312; 93325; 94660; 94762; 96365; 96366; 96372; 96375; 96376; 99152; 99153; 99284-25; A9270; C1751; G0378; J0878; J1580; J1650; J1940; J2704; J3370; J7030; J7050

== ENCOUNTER 2021-03-29 21:27 | Inpatient (IN) | payer OTHER, MEDICARE ==
[~2021-03-29] VITALS: Ht 180.3 cm; Wt 144.8 kg
[2021-03-29 22:49] LABS: BASOPHILS ABSOLUTE AUTO 0.05 K/mm3 (0.00-0.23); BASOPHILS PERCENT AUTO 1 % (0-2); EOSINOPHILS ABSOLUTE AUTO 0.23 K/mm3 (0.00-0.68); EOSINOPHILS PERCENT AUTO 3 % (0-6); Hematocrit 27.8 % (37.0-53.0); Hemoglobin 8.7 g/dL (13.5-17.5); IMMATURE GRAN ABSOLUTE AUTO 0.05 K/mm3 (0.00-0.10); IMMATURE GRAN PERCENT AUTO 1 % (0-1); LYMPHOCYTES ABSOLUTE AUTO 1.13 K/mm3 (0.84-5.20); LYMPHOCYTES PERCENT AUTO 13 % (21-46); MONOCYTES ABSOLUTE AUTO 1.04 K/mm3 (0.16-1.47); MONOCYTES PERCENT AUTO 12 % (4-13); Mean Corpuscular HGB 26.8 pg (26.0-34.0); Mean Corpuscular HGB Conc 31.3 g/dL (31.5-36.5); Mean Corpuscular Volume 86 fL (80-100); Mean Platelet Volume 11.9 fL (9.1-12.4); NEUTROPHILS ABSOLUTE AUTO 6.16 K/mm3 (1.96-9.15); NEUTROPHILS PERCENT AUTO 71 % (41-73); Platelet Count 173 K/mm3 (150-400); RDW Coefficient Variation 15.2 % (11.7-14.2); RDW Standard Deviation 47.5 fL (35.1-46.3); Red Blood Cell Count 3.25 M/mm3 (4.30-5.90); White Blood Cell Count 8.66 K/mm3 (4.00-11.30)
[2021-03-29 23:03] LABS: Albumin, Blood 2.1 g/dL (3.4-5.0); Albumin/Globulin Ratio 0.5 (0.8-1.8); Bilirubin, Total 0.4 mg/dL (0.1-1.0); Bun/Creatinine Ratio 17.5 (12.0-20.0); Calcium, Blood 9.4 mg/dL (8.5-10.1); Creatinine, Blood 1.66 mg/dL (0.60-1.20); Potassium, Blood 3.7 mmol/L (3.5-5.5); Total Protein, Blood 6.1 g/dL (6.4-8.2); Troponin I 0.079 ng/mL (0.000-0.040)
[2021-03-29 23:59] LABS: Influenza A, PCR NEGATIVE (NEGATIVE); Influenza B, PCR NEGATIVE (NEGATIVE); Resp Syncytial Virus, PCR NEGATIVE (NEGATIVE); SARS-Cov-2 (COVID-19) PCR, MMC NEGATIVE (NEGATIVE)
--- NOTE | 2021-03-30 02:49 | NUR ---
transfer report from Dawson DAMIAN RN on 65 year old PT being admitted with NSTEMI & increased RT pleural effusion & persistant rt PE. 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 Has AFIB RVR & off anticoaug due to antibiotc interection to tx endocarditis. [facility] PT being admitted OBS status with Partial code status. Await admission
[2021-03-30] MEDS ORDERED: OXYC5 PO (03:34)
[2021-03-30] MEDS ORDERED: RIFA300 PO (03:35)
[2021-03-30] MEDS ORDERED: DOXA4 PO ×2 (03:36→03:38)
[2021-03-30] MEDS ORDERED: DAPTOMYCIN500 M3 IV (03:37)
[2021-03-30] MEDS ORDERED: MELA3 PO (03:41)
[2021-03-30] MEDS ORDERED: ENOX100I SC (03:42)
--- NOTE | 2021-03-30 06:50 | NUR ---
65 year old MAle recently retired has been at [facility] facility to rehab & complete 6 weeks of IV abx for endocarditis. He has RT nonobstructing PE per CT & worsening rt pleural effusion. He is set to have thoracentesis today & is on his baseline 3 l NC oxygen. Wears CPAP baseline for RENE, came from facility did not bring own. PT has afib off anticoag per report due to incopat with abx. Since AV valve replacement 02/03/21 in [place] PT has has PE.s Endocarditis. is HC POA. Partial code no intubation.
--- NOTE | 2021-03-30 10:28 | NUR ---
CONFIRMED WITH PATIENT CODE STATUS, PT STATES HE WANTS ALL LIFE SAVING MEASURES INCLUDING MEDICATION, DEFIB, AND CHEST COMPRESSION; BUT DOES NOT WANT TO BE INTUBATED. NOTIIFED DR PARMAR, NEW ORDER FOR DNI ENTERED.
--- NOTE | 2021-03-30 15:49 | NUR ---
Patient's spouse, Cecil is at south entrance with pt's ACP instrument to be delivered to pt's RN Stephanie. I collect pt's advance directive and then visit with Cecil. She explains about pt's depression that stems from being isolated from family and from seemingly endless complications and setbacks with his medical condition. I provide therapeutic listening and gentle encouragement to Cecil. I then go and visit with pt in PCU-6. He confirms his frustrations and with the on going medical issues and emotional pain from not being able to be with his family ("the phone conversations just don't cut it" says the pt). He is even tearful at times, stating that he just wants to hold his . We explore sources of meaning, value and purpose and discuss the reasons why it is imperative to stay up emotionally. Pt responds well and and shows signs of an elevated mood and greater resolve to move toward recovery. I will continue to assist pt with the emotional/spiritual aspects associated with medical set-backs and hospital wide precautions.
[2021-03-30 15:54] LABS: pH, Body Fluid 6.1
[2021-03-30 15:57] LABS: Albumin, Body Fluid 1.3 g/dL; Glucose, Body Fluid 152 mg/dL; Lactate Dehydrogenase, Body Fl 225 U/L; Protein, Body Fluid 2.8 g/dL
[2021-03-30 16:03] LABS: Automated BF RBC Count 0.061 M/mm3 (0-0); Automated BF WBC Count 0.352 K/mm3 (0-999); Body Fluid WBC Count 352 /mm3 (0-999); RBC Count, Body Fluid 61000 /mm3 (0-0)
[2021-03-30 17:27] LABS: Total Cell Count, Body Fluid 100
[2021-03-30 17:29] LABS: Appearance, Body Fluid Cloudy (Clear); Color, Body Fluid Red (None-Yellow)
--- NOTE | 2021-03-30 18:16 | NUR ---
POST THORCENTESIS PT STARTED COUGHING WITH PROGRESSIVLY WORSENED, LS CLEAR IN UPPER LOBES AND DIM IN BASES WITH RHONCI NOTED TO RUL. HR 130-150's; BP STABLE. NOTIFIED DR PARMAR, NEW ORDERS TO GIVE COUGH SYRUP AND PO LOPRESSOR. ON REASSESSMENT PT RESP RATE INCREASED AND WORK OF BREATING WORSENED AND IS CONTIUEING TO COUGH, LS COARE T/O WITH AUBILBE COARSE BREATHING; NOTIFIED DR PARMAR, NEW ORDERS FOR STAT 1V CHEST XRAY. WILL CONTINUE TO MONITOR.
--- NOTE | 2021-03-30 18:34 | NUR ---
NOTIFIED DR GHULAM RIVERA COMPLETED AND INCREASE RESP RATE AND VS. NEW ORDERS FOR IV LASIX AND MORPHINE.
[2021-03-30 22:29] LABS: Gentamicin, Trough 1.7 ug/mL (0.0-1.9)
[2021-03-30 22:38] LABS: Source, Urine Foley catheter
[2021-03-30 22:45] LABS: Bilirubin, Urine Neg (Neg); Blood, Urine 2+ (Neg); Glucose Qualitative, Urine 3+ (Neg); Ketones, Urine Neg (Neg); Leukocyte Esterase, Urine Neg (Neg); Nitrite, Urine Neg (Neg); Protein, Urine 1+ (Neg); Urobilinogen, Urine NORM (Normal)
[2021-03-30 23:04] LABS: Appearance, Urine Clear (Clear); Color, Urine Yellow (P-Yellow)
[2021-03-30 23:05] LABS: Bacteria Mod /hpf; Red Blood Cells, Urine 0-2 /hpf (0-2); Squamous Epithelial Cells Few /hpf (Few); White Blood Cells, Urine 0-2 /hpf (0-5)
[2021-03-30 23:06] LABS: Amorphous Light (0-Heavy)
--- NOTE | 2021-03-30 23:09 | NUR ---
PT STS THAT HE DOES NOT HAVE AN ALLERY TO ACETOMINOPHEN.
[2021-03-31 04:59] LABS: Hematocrit 21.7 % (37.0-53.0); Mean Corpuscular HGB 27.2 pg (26.0-34.0); Mean Corpuscular HGB Conc 32.3 g/dL (31.5-36.5); Mean Corpuscular Volume 84 fL (80-100); Mean Platelet Volume 11.4 fL (9.1-12.4); NRBC ABSOLUTE 0.02 K/mm3 (0.00-0.02); NRBC Auto 0.1 /100 WBC (0.0-0.2); Platelet Count 208 K/mm3 (150-400); RDW Coefficient Variation 15.8 % (11.7-14.2); RDW Standard Deviation 47.5 fL (35.1-46.3); Red Blood Cell Count 2.57 M/mm3 (4.30-5.90); White Blood Cell Count 15.98 K/mm3 (4.00-11.30)
[2021-03-31 05:43] LABS: Iron Serum 34 ug/dL (65-175); Magnesium, Blood 1.9 mg/dL (1.6-2.4)
[2021-03-31 05:45] LABS: Alanine Aminotransfer (ALT/SGP 94 U/L (12-78); Albumin, Blood 1.9 g/dL (3.4-5.0); Albumin/Globulin Ratio 0.6 (0.8-1.8); Alk Phos 55 U/L (50-136); Anion Gap 8 mmol/L (6-16); Aspartate Aminotrans (AST/SGOT 43 U/L (12-37); Bilirubin, Total 0.5 mg/dL (0.1-1.0); Blood Urea Nitrogen 66 mg/dL (8-24); Bun/Creatinine Ratio 25.6 (12.0-20.0); CO2, Blood 27 mmol/L (21-32); Calcium, Blood 8.5 mg/dL (8.5-10.1); Chloride, Blood 102 mmol/L (98-108); Creatinine, Blood 2.58 mg/dL (0.60-1.20); Ferritin, Serum 1301 ng/mL (26-388); Gentamicin, Random 1.6 ug/Ml; Globulin, Blood 3.4 g/dL (2.2-4.0); Glomerular Filtration Rate 25 (60-); Glucose, Blood 200 mg/dL (70-99); Percent Saturation 27.2 % (20.0-50.0); Potassium, Blood 4.1 mmol/L (3.5-5.5); Sodium, Blood 137 mmol/L (136-145); Total Iron Binding Capacity 125 ug/dL (250-450); Total Protein, Blood 5.3 g/dL (6.4-8.2)
--- NOTE | 2021-03-31 05:49 | NUR ---
CALLED DR REAGAN REGARDING PT HGB AT 7.0. PER DR REAGAN DC LOVENOX, AND NO FURTHER ORDERS.
--- NOTE | 2021-03-31 06:05 | NUR ---
SHIFT SUMMARY PT IS ALERT AND ORIENTED. DENIES CHEST PAIN/PRESSURE. DENIES CALF TENDERNESS. REPORTS SOB AND BREATHING CONDITION HAVE IMPROVED. BP IS SOFT WITH AND IN SINUS TACH IN THE 110-120'S. ON 2L NC WITH SATS ABOVE 92%. HERNANDEZ CATHETER IN PLACE AND DRAINING TO GRAVITY. CALL LIGHT WITHIN REACH.
--- NOTE | 2021-03-31 17:38 | NUR ---
SHIFT SUMMARY PT A&Ox4; UP IN RECLINER T/O SHIFT, APPEARS TO BE SLEEPING INTERMITTENTLY, WAKES EASILY. PT DENIES PAIN, CHEST PAIN, NAUSEA AND DIZZINESS T/O SHIFT. PT SOB AT REST THIS AM, SPO2 >90% ON 3L O2 VIA NC THIS AM TITRATED TO 2L O2 VIA NC. PT RECEIVED 1 UNIT PRBC AND LASIX POST INFUSION PER ORDERS. PT CONTINUES WITH IV AND PO ANTIBIOTICS. ECHO AND RENAL ULTRASOUND COMPLETED DURING SHIFT. HR ELEVATED THIS EVENING, NOTIFIED DR PARMAR, NEW ORDERS ENTERED. OTHER VSS. NO OTHER ACUTE CHANGES NOTED. WILL CONTINUE TO MONITOR UNITL REPORT GIVEN TO ONCOMING RN.
--- NOTE | 2021-03-31 21:30 | NUR ---
ASSUMED CARE OF PATIENT AT APPROXIMATELY 1910 FROM VANDANA Carr RN. PATIENT ALERT AND ORIENTED X4; FLAT AT TIMES. PATIENT DENIES PAIN, NUMBESS, TINGLING, DIZZINESS, AND NAUSEA. AFIB 100-110'S ON TELE; OXYGEN SATURATION ABOVE 90% ON 2LPM VIA NC. POWER PICC MALINDA S/L. BP SOFT; SYSTOLIC 99-110 AND DIASTOLIC 30-40'S WITH MAP BELOW 60 AT TIMES. PATIENT REPORTS HE WILL SLEEP IN RECLINER TONIGHT. HERNANDEZ DRAINING ORANGE URINE; SBA OUT OF BED PER REPORT.
--- NOTE | 2021-04-01 00:30 | NUR ---
PATIENT VERY SHORT OF BREATH FROM CHAIR TO BED ONLY TWO STEPS AWAY; INCONTINENT OF BLACK TARRY STOOL; SENDING SAMPLE TO LAB PER ORDER.
[2021-04-01 05:07] LABS: Hematocrit 20.1 % (37.0-53.0); Hemoglobin 6.4 g/dL (13.5-17.5); Mean Corpuscular HGB 27.7 pg (26.0-34.0); Mean Corpuscular HGB Conc 31.8 g/dL (31.5-36.5); Mean Corpuscular Volume 87 fL (80-100); Mean Platelet Volume 11.6 fL (9.1-12.4); NRBC ABSOLUTE 0.15 K/mm3 (0.00-0.02); NRBC Auto 0.7 /100 WBC (0.0-0.2); Platelet Count 275 K/mm3 (150-400); RDW Coefficient Variation 15.9 % (11.7-14.2); RDW Standard Deviation 47.7 fL (35.1-46.3); Red Blood Cell Count 2.31 M/mm3 (4.30-5.90); White Blood Cell Count 21.01 K/mm3 (4.00-11.30)
--- NOTE | 2021-04-01 05:08 | NUR ---
AT [facility] 0425 PATIENT AMBULATED INDEPDENTENLY FROM CHAIR TO BED WITHOUT CALLING FOR ASSISANT; [facility] REPORTS SHE FOUND PATIENT SITTING ON SIDE OF BED REPORTING CHEST PAIN. PATIENT REPORTS TO THIS RN AROUND 0435 THAT HE IS HAVING BACK AND CHEST PAIN 09/06; NO ORDERS FOR CHEST PAIN; BP STABLE; HEART RATE IN 130'S AND PATIENT VERY SHORT OF BREATH; OXYGEN SATURATION 94 BUT DROPPED TO 80'S BECAUSE PATIENT'S OXYGEN WAS NOT ON. PATIENT REPORTS TO MULTIFOCAL LENS ASSEMBLER CARLOS THAT HE THINKS THIS MAYBE DUE TO THE EXERTION OF MOVING FROM CHAIR TO BED AND ANXIETY. MULTIFOCAL LENS ASSEMBLER NOTIFIED DR. MCCOY OF CHEST PAIN. PATIENT REPORTS HIS PAIN WAS DOWN TO A 4 BY 0450 AFTER BEING PLACED BACK INTO BED. PATIENT REQUESTED ROXICODONE; PATIENT CURRENTLY SNORING IN BED.
[2021-04-01 05:23] LABS: Anion Gap 15 mmol/L (6-16); Blood Urea Nitrogen 96 mg/dL (8-24); Bun/Creatinine Ratio 33.3 (12.0-20.0); CO2, Blood 22 mmol/L (21-32); Calcium, Blood 8.3 mg/dL (8.5-10.1); Chloride, Blood 99 mmol/L (98-108); Creatinine, Blood 2.88 mg/dL (0.60-1.20); Gentamicin, Random 0.8 ug/Ml; Glomerular Filtration Rate 22 (60-); Glucose, Blood 252 mg/dL (70-99); Potassium, Blood 3.9 mmol/L (3.5-5.5); Sodium, Blood 136 mmol/L (136-145)
--- NOTE | 2021-04-01 05:34 | NUR ---
PATIENT HAD TO BE TRANSFERRED TO NEW BED DUE TO OTHER BED NOT ABLE TO LIFT HEAD OF BED.
--- NOTE | 2021-04-01 05:35 | NUR ---
PATIENT REPORTS HE NO LONGER HAS ANY PAIN AT APPROXIMATELY 0520. NO OTHER ACUTE CHANGES TO REPORT. PATIENT DID NOT SLEEP MORE THAN A FEW HOURS.
--- NOTE | 2021-04-01 05:41 | NUR ---
HEMOGLOBIN 6.4; 1 UNIT RBC W/ LASIX AFTERWARDS; CP AND HEART RATE 120'S; CONTINUE TO MONITOR PER DR. MCCOY
[2021-04-01 10:28] LABS: Stool Occult Bld Immuno 1 Positive (NEGATIVE)
--- NOTE | 2021-04-01 13:45 | NUR ---
Patient is lying in bed and alert. Patient, again this visit, tells me how lonely he is and how he misses his family. He states things like "I which this could all be over" and "this is no way to live." We talk about the things that he loves about his family and how important it is to stay in the fight for them and how much they need him strong and at home. I normalize and validate pt's feelings, reinforce helpful ways of looking at his situation and provide empathetic listening, gentle counselor marriage and family and prayer. Pt responds well and shows signs of an elevated mood. I will continue to remain available to patient and family.
[2021-04-01 15:14] LABS: Hematocrit 21.4 % (37.0-53.0); Hemoglobin 7.2 g/dL (13.5-17.5)
--- NOTE | 2021-04-01 18:34 | NUR ---
SHIFT SUMMARY PT A&Ox4; CALM AND COOPERATIVE WITH CARE. PT RESTING IN BED, UP SBA IN ROOM. PT SOB WITH EXERTION, SPO2 >95% ON 2L O2 VIA NC T/O SHIFT, LUNGS SOUND COARSE T/O, BREATHING MORE LABORED T/O AFTER TRANSFUSION, LASIX PER ORDERS WITH IMPROVEMENT. PT RECEIVED 1 UNIT OF PRBC THIS AM AND RECEIVING SECOND THIS EVENING. DR CAR AT BEDSIDE THIS AM, NEW ORDERS ENTERED FOR CT, FLUID RESTRICTION AND BUMEX STARTING TOMORROW. DR PURVIS AT BEDSIDE THIS AFTERNOON, NEW ORDER FOR AMIODARONE WITHOUT INITIAL BOLUS. PT DENIES PAIN, CHEST PAIN, NAUSEA AND DIZZINESS. BP SOFT, APPEARS TO BE TRENDING UP WITH TRANSFUSIONS AND AMIO. HR 120-130'S THIS AM, TRENDING DOWN TO 110'S THIS EVENING. OTHER VSS. NO OTHER ACUTE CHANGES NOTED. WILL CONTINUE TO MONITOR UNITL REPORT GIVEN TO ONCOMING RN.
--- NOTE | 2021-04-01 20:36 | NUR ---
ASSUMED CARE OF PATIENT AT APPROXIMATELY 1900 FROM VANDANA Carr RN. PATIENT ALERT AND ORIENTED X4; FLAT AT TIMES. PATIENT DENIES PAIN, NUMBESS, TINGLING, DIZZINESS, AND NAUSEA. AFLUTTER 110-120'S ON TELE; AMIO DRIP; OXYGEN SATURATION ABOVE 90% ON 2LPM VIA NC; RT TO SET UP CPAP. POWER PICC MALINDA S/L. BP SOFT AT TIMES. PIV S/L. 1 PRBC INFUSING AT SHIFT CHANGE; COMPLETED AT 1950; PATIENT WEAK; TURN Q2 HOURS TONIGHT; REPORTS SOB ALL DAY. LIQUID DIET; FLUID RESTRICTION; LASIX GIVEN AFTER BLOOD TRANSFUSTION; HERNANDEZ DRAINING ORANGE URINE; SBA OUT OF BED PER REPORT. PATIENT WAITING TRANSFER TO HIGHER LEVEL OF CARE PENDING BED PER REPORT.
[2021-04-02 05:41] LABS: Hematocrit 23.7 % (37.0-53.0); Hemoglobin 7.8 g/dL (13.5-17.5); Mean Corpuscular HGB 28.8 pg (26.0-34.0); Mean Corpuscular HGB Conc 32.9 g/dL (31.5-36.5); Mean Corpuscular Volume 88 fL (80-100); Mean Platelet Volume 11.1 fL (9.1-12.4); NRBC Auto 1.3 /100 WBC (0.0-0.2); Platelet Count 227 K/mm3 (150-400); RDW Coefficient Variation 15.9 % (11.7-14.2); RDW Standard Deviation 47.8 fL (35.1-46.3); Red Blood Cell Count 2.71 M/mm3 (4.30-5.90); White Blood Cell Count 15.53 K/mm3 (4.00-11.30)
[2021-04-02 06:05] LABS: Albumin, Blood 1.9 g/dL (3.4-5.0); Albumin/Globulin Ratio 0.6 (0.8-1.8); Bilirubin, Total 0.8 mg/dL (0.1-1.0); Bun/Creatinine Ratio 32.2 (12.0-20.0); Calcium, Blood 8.2 mg/dL (8.5-10.1); Creatinine, Blood 2.86 mg/dL (0.60-1.20); Globulin, Blood 3.4 g/dL (2.2-4.0); Potassium, Blood 3.4 mmol/L (3.5-5.5); Total Protein, Blood 5.3 g/dL (6.4-8.2)
--- NOTE | 2021-04-02 06:22 | NUR ---
DR. CAR CALLED FOR UPDATE; ORDER DAILY PO POTASSIUM FOR POTASSIUM OF 3.4 THIS AM. PATIENT SLEPT ABOUT FIVE HOURS. NO OTHER ACUTE CHANGES TO REPORT.
--- NOTE | 2021-04-02 11:40 | NUR ---
Spiritual care visit conducted. Patient explains his frustration about not feeling like he is improving and wonders if going back to [facility] would be of benefit. He tells me that he was greatly encouraged by the getting to see his spouse yesterday and that it filled his heart. He then tells me that he is tired and needs to rest. I provide prayer and let pt rest. Patient voices appreciation for the prayer.
--- NOTE | 2021-04-02 17:33 | NUR ---
SHIFT NOTE PT A/O X4, ANSWERING QUESTIONS APPROPRIATELY. REPORTS SOME TIGHTNESS IN CHEST, AND SOME SOB, STS THAT CP AND SOB ARE UNCHANGED SINCE BEGINING OF THE SHIFT. VSS. SKIN PWD AND INTACT. ABD SOFT WITH HYPOACTIVE B/T T/O, NO BM TODAY BUT DID HAVE BLACK SMEAR DURING BED BATH. HERNANDEZ DRAINING WELL TO GRAVITY, DARK YELLOW WITH GOOD OUTPUT. NO ACTIVE BLEEDING NOTED. REMAINS ON CLEAR LIQUID DIET, HE CONSUMES AROUND HALF OF EACH TRAY, REPORTS POOR APPETITE. NO BED AVAILABLE AT [facility] TODAY WILL CONTINUE TO RECHECK WAITLIST FOR POSSIBLE BED. OTHERWISE NO ADDITIONAL CHANGES NOTED THIS SHIFT.
--- NOTE | 2021-04-02 21:04 | NUR ---
ASSUMED CARE OF PATIENT AT APPROXIMATELY 1900 FROM ASHLEY Dee RN. PATIENT ALERT AND ORIENTED X4; FLAT AT TIMES. PATIENT DENIES PAIN, NUMBESS, TINGLING, DIZZINESS, AND NAUSEA. SR/ST ON TELE; OXYGEN SATURATION ABOVE 90% ON 2LPM VIA NC; REFUSES TO WEAR HOSPITAL CPAP. POWER PICC MALINDA S/L. PIV S/L. PATIENT WEAK; TURN Q2 HOURS TONIGHT; REFUSES TURNS AT TIMES; REPORTS SOB ALL DAY. LIQUID DIET; FLUID RESTRICTION; LASIX GIVEN AFTER BLOOD TRANSFUSTION; HERNANDEZ DRAINING ORANGE URINE. PATIENT WAITING TRANSFER TO HIGHER LEVEL OF CARE PENDING BED PER REPORT.
[2021-04-03 04:14] LABS: Hematocrit 22.5 % (37.0-53.0); Hemoglobin 7.4 g/dL (13.5-17.5); Mean Corpuscular HGB 29.1 pg (26.0-34.0); Mean Corpuscular HGB Conc 32.9 g/dL (31.5-36.5); Mean Corpuscular Volume 89 fL (80-100); Mean Platelet Volume 10.8 fL (9.1-12.4); NRBC ABSOLUTE 0.09 K/mm3 (0.00-0.02); NRBC Auto 0.8 /100 WBC (0.0-0.2); Platelet Count 206 K/mm3 (150-400); RDW Coefficient Variation 16.8 % (11.7-14.2); RDW Standard Deviation 49.1 fL (35.1-46.3); Red Blood Cell Count 2.54 M/mm3 (4.30-5.90); White Blood Cell Count 11.89 K/mm3 (4.00-11.30)
[2021-04-03 04:44] LABS: Albumin, Blood 1.9 g/dL (3.4-5.0); Albumin/Globulin Ratio 0.6 (0.8-1.8); Bilirubin, Total 0.8 mg/dL (0.1-1.0); Bun/Creatinine Ratio 28.7 (12.0-20.0); Calcium, Blood 7.9 mg/dL (8.5-10.1); Creatinine, Blood 2.93 mg/dL (0.60-1.20); Globulin, Blood 3.4 g/dL (2.2-4.0); Potassium, Blood 2.9 mmol/L (3.5-5.5); Total Protein, Blood 5.3 g/dL (6.4-8.2)
--- NOTE | 2021-04-03 06:02 | NUR ---
NOTIFIED DR. MCCOY OF 2.9 POTASSIUM; ORDERS FOR 40 KCL IV NOW.
--- NOTE | 2021-04-03 06:48 | NUR ---
PATIENT SLEPT ABOUT FOUR HOURS LAST NIGHT; REFUSED REPOSISTIONING MOST OF NIGHT. NO OTHER ACUTE CHANGES TO REPORT.
[2021-04-03 09:54] LABS: Gentamicin, Trough 1.1 ug/mL (0.0-1.9)
--- NOTE | 2021-04-03 10:41 | NUR ---
DR CAR CALLED FOR REPEAT POSTASSIUM, ORDERS OBTAINED FOR POTASSIUM IVP
[2021-04-03 15:05] LABS: Hematocrit 23.9 % (37.0-53.0); Hemoglobin 7.6 g/dL (13.5-17.5)
--- NOTE | 2021-04-03 18:32 | NUR ---
SHIFT NOTE PT A/O X4, REPORTS SOME INCREASE IN SOB TODAY, STS THAT CP HAS NOW RESOLVED. DENIES ABD PAIN, NO BM TODAY. GOOD URINE OUTPUT IN HERNANDEZ TO GRAVITY. VSS. DR CAR HAS BEEN UPDATED ON POTASSIUM THIS AM NEW ORDERS WERE OBTAINED FOR POTASSIUM THAT HAS BEEN INFUSED. PT APPEARS TO HAVE INCREASE IN APPETITE T/O THE DAY. DR HARKINS WAS IN TO CONSULT WITH PT THIS EVENING, HE IS MADE AWARE THAT PT DOES POSSIBLY HAVE A BED IN [facility] THAT DR PARMAR IS SPEAKING WITH ACCEPTING DR AT [facility], PT IS ALSO UPDATED ABOUT POSSIBLE BED AT [facility]. PT OTHERWISE WITH NO ACUTE CHANGES THIS SHIFT
--- NOTE | 2021-04-03 22:48 | NUR ---
CARE ASSUMPTION: INTRODUCED SELF TO PATIENT WHO WAS LYING IN BED WATCHING TV. REPOSITIONED WITH ASSISTANCE FROM PATIENT TECH. PATIENT DENIED SOB AND PAIN; REQUESTED FRESH CUP OF WATER FOR THE EVENING. EDUCATED ON FLUID RESTRICTION AND REMINDED THAT WAS THE ONLY WATER HE COULD HAVE UNTIL DAY SHIFT.
[2021-04-04 04:14] LABS: Hematocrit 24.1 % (37.0-53.0); Hemoglobin 7.7 g/dL (13.5-17.5); Mean Corpuscular HGB 29.3 pg (26.0-34.0); Mean Corpuscular Volume 92 fL (80-100); Mean Platelet Volume 10.9 fL (9.1-12.4); NRBC ABSOLUTE 0.05 K/mm3 (0.00-0.02); NRBC Auto 0.5 /100 WBC (0.0-0.2); Platelet Count 208 K/mm3 (150-400); RDW Coefficient Variation 17.8 % (11.7-14.2); RDW Standard Deviation 51.2 fL (35.1-46.3); Red Blood Cell Count 2.63 M/mm3 (4.30-5.90); White Blood Cell Count 9.92 K/mm3 (4.00-11.30)
[2021-04-04 04:35] LABS: Albumin, Blood 1.9 g/dL (3.4-5.0); Anion Gap 8 mmol/L (6-16); Blood Urea Nitrogen 80 mg/dL (8-24); Bun/Creatinine Ratio 28.3 (12.0-20.0); CO2, Blood 31 mmol/L (21-32); Calcium, Blood 8.1 mg/dL (8.5-10.1); Chloride, Blood 102 mmol/L (98-108); Creatinine, Blood 2.83 mg/dL (0.60-1.20); Glomerular Filtration Rate 22 (60-); Glucose, Blood 156 mg/dL (70-99); Phosphorus, Blood 3.7 mg/dL (2.5-4.9); Potassium, Blood 2.9 mmol/L (3.5-5.5); Sodium, Blood 141 mmol/L (136-145)
--- NOTE | 2021-04-04 06:21 | NUR ---
SHIFT SUMMARY: PATIENT A&O X4, TACHYCARDIC T/O SHIFT. DENIES PAIN. PATIENT RESTED MOST OF SHIFT, EASILY AWOKE AND WAS COOPERATIVE WITH CARE. POTASSIUM WAS 2.9 THIS AM, CRITICAL VALUE CALLED TO DR. MCCOY AND 40 MEQ IV WAS ORDERED. FIRST BAG HUNG AT 0630. WILL CONTINUE TO MONITOR AND REPORT TO ONCOMING RN.
--- NOTE | 2021-04-04 10:22 | NUR ---
pt in day surgery
--- NOTE | 2021-04-04 10:25 | NUR ---
INTO [facility] VIA GURTroverY FROM PCU ROOM. History, Chart, Medications and Allergies reviewed before start of procedure.Patient confirms NPO status SINCE 0800 CLEAR LIQUID (ANESTHESIA AND PHYSICIAN NOTIFIED) and agrees with scheduled surgery.
--- NOTE | 2021-04-04 10:36 | NUR ---
04/04/21 1036 Laney Noland History, Chart, Medications and Allergies reviewed before start of procedure.MONITOR INTACT WITH CONTINUOUS PULSE OXIMETRY,EKG AND INTERMITTENT BP.O2 VIA POM INTACT THROUGHOUT SEDATION/PROCEDURE.See Anesthesia record
--- NOTE | 2021-04-04 11:50 | NUR ---
PT TO BE NPO FOR 2 HOURS POST PROCEDURE FOR GAG REFLEX TO RETURN POST NUMBING, WILL GIVE PO MEDS WHEN ABLE TO AGAIN TAKE PO MEDS
--- NOTE | 2021-04-04 17:41 | NUR ---
SHIFT NOTE PT DENIES CHANGE IN SOB, DENIES CP. LS REMAIN DIMINSHED T/O. VSS. PT TO DAY SURGERY FOR EEG THIS MORNING, THERE WAS NO NEED FOR INTERVENTIONS, WAS RECOVERED HERE IN PCU AND TOLERATED RECOVERY WELL. PT DID BEGIN TO C/O ABD PAIN THIS EVENING WITH LOUD GURGLING NOTED TO ABD, PT STS "BUT IT'S NOT GOING TO PRODUCE ANYTHING" THEN HAD A SMALL DARK BROWN SOFT BM IN BED [place] WHICH HE STS RELIEVED ABD PAIN. DR BELL PLACED ORDERS FOR GOLYTELY TO PREPARE FOR COLOOSCOPY AT 0800 TOMORROW, PT WILL REMAIN ON CLEAR LIQUIDS UNTIL 0600 TOMORROW THEN WILL BE MADE NPO. PT WILL BEGIN PREP THIS EVENING. PT RECIEVED POTASSIUM REPLACEMENT THIS SHIFT WHICH WILL BE REASSESSED IN THE MORNING. OTHERWISE THERE ARE NO ACUTE CHANGES TO DISCUSS THIS SHIFT
--- NOTE | 2021-04-04 20:29 | NUR ---
CARE ASSUMPTION: RECEIVED REPORT FROM KADE RAMIREZ. PATIENT NO LONGER TRANSFERRING TO [facility]. CURRENTLY RESTING IN BED WITH GI COCKTAIL AT BEDSIDE. PATIENT EXPRESSES CONCERN ABOUT COLON CLEANSE AND USING BEDPAN. KADE JENKINS EDUCATED ON RECTAL TUBE AND PATIENT AGREED THAT WOULD BE A GOOD OPTION. PATIENT CURRENTLY HAVING FIRST BM. WILL MONITOR FOR RIGHT TIMING TO PLACE RECTAL TUBE. PLAN IS FOR AM COLONOSCOPY. PATIENT SINUS TACH AND O2 SATURATION 97% ON 2L NC.
--- NOTE | 2021-04-04 21:07 | NUR ---
RECTAL TUBE INSERTION: FLEXISEAL RECTAL TUBE WAS INSERTED BY THIS RN AT 2100. BLACK-BROWN LIQUID STOOL DRAINING TO GRAVITY. PATIENT EDUCATED PRIOR TO PROCEDURE AND TOLERATED WELL.
[2021-04-05 04:43] LABS: Hematocrit 25.4 % (37.0-53.0); Mean Corpuscular HGB 29.1 pg (26.0-34.0); Mean Corpuscular HGB Conc 31.5 g/dL (31.5-36.5); Mean Corpuscular Volume 92 fL (80-100); Mean Platelet Volume 11.1 fL (9.1-12.4); NRBC ABSOLUTE 0.04 K/mm3 (0.00-0.02); NRBC Auto 0.4 /100 WBC (0.0-0.2); Platelet Count 180 K/mm3 (150-400); RDW Coefficient Variation 18.4 % (11.7-14.2); RDW Standard Deviation 52.3 fL (35.1-46.3); Red Blood Cell Count 2.75 M/mm3 (4.30-5.90); White Blood Cell Count 11.22 K/mm3 (4.00-11.30)
[2021-04-05 05:08] LABS: Albumin, Blood 1.9 g/dL (3.4-5.0); Albumin/Globulin Ratio 0.5 (0.8-1.8); Bilirubin, Total 0.6 mg/dL (0.1-1.0); Bun/Creatinine Ratio 26.9 (12.0-20.0); Calcium, Blood 8.1 mg/dL (8.5-10.1); Creatinine, Blood 2.71 mg/dL (0.60-1.20); Globulin, Blood 3.8 g/dL (2.2-4.0); Phosphorus, Blood 2.8 mg/dL (2.5-4.9); Potassium, Blood 2.9 mmol/L (3.5-5.5); Total Protein, Blood 5.7 g/dL (6.4-8.2)
--- NOTE | 2021-04-05 05:23 | NUR ---
SHIFT SUMMARY: PATIENT COMPLETED GI COCKTAIL ~2330 IN PREPARATION FOR 0[address] IN PLACE AND DRAINING TO GRAVITY. RECTAL TUBE DRAINED BEST WITH PATIENT ON SIDE AND PATIENT WAS IN THAT POSITION FROM [id number] BEFORE REQUESTING TO RETURN TO SUPINE POSITION. BPS HAVE BEEN SOFT IN EARLY AM, PATIENT PALE, AND CONTINUES TO BE TACHYCARDIC. DISCUSSED WITH TEST SKEIN WINDER MARC AND DETERMINED TO WAIT UNTIL MORNING LABS POSTED. HGB IS 8.0 AND HCT IS 25, WHICH IS UP FROM YESTERDAY MORNING - PATIENT HAS HX OF ANEMIA. AT THE TIME OF THIS NOTE ~2800 ML OF STOOL HAVE DRAINED AND BAG HAS BEEN CHANGED TWICE. PICC IN MALINDA STICKY TODAY, WAS ABLE TO DRAW LABS AND CHANGE CAP. EKG THIS MORNING. WILL CONTINUE TO MONITOR AND REPORT TO ONCOMING RN.
--- NOTE | 2021-04-05 07:55 | NUR ---
INTO [facility] VIA GURNEY FROM PCU. History, Chart, Medications and Allergies reviewed before start of procedure.Patient confirms NPO status and agrees with scheduled surgery.DNI ADDRESSED WITH DR. SMYTH ANESTHESIA
--- NOTE | 2021-04-05 08:25 | NUR ---
04/05/21 0825 Laney Noland History, Chart, Medications and Allergies reviewed before start of procedure.MONITOR INTACT WITH CONTINUOUS PULSE OXIMETRY,3 LEAD, AND INTERMITTENT BP.O2 VIA POM INTACT THROUGHOUT SEDATION/PROCEDURE.See Anesthesia record
--- NOTE | 2021-04-05 18:22 | NUR ---
PT SUMMARY: NO ACUTE CHANGE FOR THE SHIFT, VITALS HRR ST/AFLUTTER 115, BP SYSTOLIC 120-150'S, SATS ABOVE 95% ON 2L OF O2, AFEBRILE. PT HAD COLONOSCOPY DONE TODAY BOWELS ARE NOT CLEAR TO REPEAT PROCEDURE TOMORROW TO START BOWEL PREP AT 0900, CAME IN TO VISIT AWARE OF THE PLAN OF CARE. PT DENIES ANY PAIN FOR THE SHIFT, REFUSED TO GET REPOSITIONED ON SIDES OR BE PROPPED ON PILLOWS HAS BEEN BOOSTED UP IN BED 3 TIMES FOR THE SHIFT. PT HAS NOW REDDENED AREA ON BUTTOCKS CREAM APPLIED PT EDUCATED OF SHIFTING POSITIONS, PT STATED HE'S COMFORTABLE JUST LAYING ON HIS BACK. POTASSIUM AT 2.9 THIS AM WENT UP TO 3.2 WAS GIVEN 40 MEQ THEN ANOTHER 20 MEQ AFTER 12 NN K LAB WAS DRAWN. NO OTHER ISSUES REPORTED, RECTAL TUBE WAS REMOVED DURING THE PROCEDURE, HERNANDEZ DRAINING PATENT VIA GRAVITY. PT ABLE TO MAKE NEEDS KNOWN, WILL REPORT TO ONCOMING SHIFT
--- NOTE | 2021-04-05 19:00 | NUR ---
ASSUMED CARE OF PT, BEDSIDE REPORT RECEIVED. PT RESTING QUIETLY RECLINING IN BED AND WATCHING TV, DENIES NEEDS AT THIS TIME.
[2021-04-06 04:10] LABS: Hematocrit 24.3 % (37.0-53.0); Hemoglobin 7.6 g/dL (13.5-17.5)
[2021-04-06 04:39] LABS: Albumin, Blood 1.7 g/dL (3.4-5.0); Anion Gap 8 mmol/L (6-16); Blood Urea Nitrogen 70 mg/dL (8-24); Bun/Creatinine Ratio 28.5 (12.0-20.0); CO2, Blood 31 mmol/L (21-32); Calcium, Blood 7.9 mg/dL (8.5-10.1); Chloride, Blood 106 mmol/L (98-108); Creatinine, Blood 2.46 mg/dL (0.60-1.20); Glomerular Filtration Rate 26 (60-); Glucose, Blood 159 mg/dL (70-99); Phosphorus, Blood 3.2 mg/dL (2.5-4.9); Potassium, Blood 3.3 mmol/L (3.5-5.5); Sodium, Blood 145 mmol/L (136-145)
--- NOTE | 2021-04-06 06:34 | NUR ---
PT CONTINUES TO DECLINE TURNS THROUGHOUT SHIFT, VERBALIZES UNDERSTANDING OF PRESSURE INJURY RISK AND STATES THAT HE IS ABLE TO REPOSITION SELF ADEQUATELY. MINIMAL REPOSITIONING HAS BEEN NOTED BUT PT CONTINUES TO DECLINE TURNS AND CITES THAT HE IS COMFORTABLE. HE DOES REPORT IMPROVED SLEEP THIS SHIFT AND INQUIRES TO THE TIME HE IS TO BEGIN BOWEL PREP THIS AM WELL TIME OF COLONOSCOPY THIS PM. OTHERWISE NO ACUTE CHANGES THROUGHOUT SHIFT.
--- NOTE | 2021-04-06 15:01 | NUR ---
PATIENTS 20G IV RIGHT WRIST, PATIENT STATES IT WAS PLACED IN DAY SURGERY.
--- NOTE | 2021-04-06 15:20 | NUR ---
PATIENT OFF FLOOR FOR COLONOSCOPY.
--- NOTE | 2021-04-06 15:24 | NUR ---
PT TO [facility] FOR COLONOSCOPY. AGREES WITH PLANNED PROCEDURE.
--- NOTE | 2021-04-06 15:40 | NUR ---
04/06/[address] PROVIDING ANESTHESIA CARE.
--- NOTE | 2021-04-06 18:48 | NUR ---
SHIFT SUMMARY: PT A&Ox4 T/OUT SHIFT, MORE COMPLIANT WITH REPOSITIONING T/OUT SHIFT BUT DOES DECLINE TO TURN TO RT SIDE AND PREFERS HIS BACK OR L SIDE. PT MAINTAINS O2 SATS >92% ON 2 L/MIN VIA NC. MONITOR SHOWS SINUS RHYTHM/TACH W/RATE 90s-110s. PT SCHEDULED FOR REPEAT COLONOSCOPY TODAY, BOWEL PREP COMPLETED, RECTAL TUBE PLACED FOR COMFORT THEN REMOVED IN SURGERY. PT RETURNS APPROX 1630 TO DEPT, CONTINUES A&O, NO ACUTE DISTRESS. I&O UPDATED T/OUT SHIFT. INDWELLING HERNANDEZ CONTINUES PATENT, DRAINING TO GRAVITY. AT THIS TIME, PT RESTING QUIETLY IN BED. WILL CONTINUE TO MONITOR AND TREAT ACCORDINGLY UNTIL CHANGE OF SHIFT.
[2021-04-07 05:26] LABS: Hematocrit 24.9 % (37.0-53.0); Hemoglobin 7.6 g/dL (13.5-17.5); Mean Corpuscular HGB 28.6 pg (26.0-34.0); Mean Corpuscular HGB Conc 30.5 g/dL (31.5-36.5); Mean Corpuscular Volume 94 fL (80-100); Mean Platelet Volume 10.8 fL (9.1-12.4); Platelet Count 182 K/mm3 (150-400); RDW Coefficient Variation 18.6 % (11.7-14.2); RDW Standard Deviation 58.5 fL (35.1-46.3); Red Blood Cell Count 2.66 M/mm3 (4.30-5.90); White Blood Cell Count 14.71 K/mm3 (4.00-11.30)
[2021-04-07 05:40] LABS: Calcium, Blood 8.3 mg/dL (8.5-10.1); Creatinine, Blood 2.33 mg/dL (0.60-1.20); Potassium, Blood 3.5 mmol/L (3.5-5.5)
--- NOTE | 2021-04-07 05:48 | NUR ---
SHIFT SUMMARY NO ACUTE CHANGES DURING SHIFT. PT A&OX4, WEAK. SP02>92% ON 2L NC. NO COUGH NOTED. TELEMETRY SHOWS AFLUTTER, HR 100'S-120'S. CARDIZEM PO Q6 PER EMAR. PT DENIES PAIN. HERNANDEZ CATHETER DRAINING CLEAR YELLOW URINE TO GRAVITY. NO BM THIS SHIFT. PT DID HAVE ONE EPISODE OF COUGHING AFTER TAKING MIDNIGHT MEDICATION. STATED "WATER WENT DOWN THE WRONG TUBE". PT REFUSED REPOSITIONING, STATED HE WAS COMFORTABLE AND WOULD REACH OUT WHEN HE WANTED TO BE MOVED. PT SLEPT UNTIL MIDNIGHT, WAS AWAKENED FOR MIDNIGHT MEDICATION, AND THEN STAYED AWAKE. CALL LIGHT IN REACH.
--- NOTE | 2021-04-07 17:07 | NUR ---
SHIFT SUMMARY: PT CONTINUES A&O T/OUT SHIFT, WEAKNESS, AGREEABLE TO MINIMAL REPOSITIONING. 2L/MIN VIA NC, FAINT EXP WHEEZING NOTED, PRN ORDERS OBTAINED FOR BREATHING TXKELLY IN RESP CARE NOTIFIED AND EVAL COMPLETED. MONITOR SHOWS AFLUTTER 100-120s. FR OF 1000ML CONTINUES, PT UPGRADED TO HEART HEALTHY DIET FOR DINNER. THIS RN SPOKE WITH KADE REBOLLAR AT [facility] TRANSFER OFFICE, TO ANSWER QUESTIONS RE: PT STATUS AND PLAN. SMOOTH STATES SHE WILL LOOK INTO POSSIBLE TRANSFER FOR PT TO COME TO [facility] AND WILL NOTIFY US IF THAT IS A POSSIBILITY, HAVE NOT HEARD BACK FROM HER AT THIS POINT. INDWELLING HERNANDEZ CONTINUES PATENT, NO BM THIS SHIFT. WILL CONTINUE TO MONITOR AND TREAT ACCORDINGLY UNTIL CHANGE OF SHIFT.
[2021-04-08 04:40] LABS: BASOPHILS ABSOLUTE AUTO 0.05 K/mm3 (0.00-0.23); BASOPHILS PERCENT AUTO 0 % (0-2); EOSINOPHILS ABSOLUTE AUTO 0.49 K/mm3 (0.00-0.68); EOSINOPHILS PERCENT AUTO 3 % (0-6); Hemoglobin 7.9 g/dL (13.5-17.5); IMMATURE GRAN ABSOLUTE AUTO 0.18 K/mm3 (0.00-0.10); IMMATURE GRAN PERCENT AUTO 1 % (0-1); LYMPHOCYTES ABSOLUTE AUTO 0.79 K/mm3 (0.84-5.20); LYMPHOCYTES PERCENT AUTO 5 % (21-46); MONOCYTES ABSOLUTE AUTO 1.13 K/mm3 (0.16-1.47); MONOCYTES PERCENT AUTO 7 % (4-13); Mean Corpuscular HGB 28.4 pg (26.0-34.0); Mean Corpuscular HGB Conc 30.4 g/dL (31.5-36.5); Mean Corpuscular Volume 94 fL (80-100); Mean Platelet Volume 10.6 fL (9.1-12.4); NEUTROPHILS ABSOLUTE AUTO 13.93 K/mm3 (1.96-9.15); NEUTROPHILS PERCENT AUTO 84 % (41-73); Platelet Count 193 K/mm3 (150-400); RDW Coefficient Variation 17.6 % (11.7-14.2); RDW Standard Deviation 56.2 fL (35.1-46.3); Red Blood Cell Count 2.78 M/mm3 (4.30-5.90); White Blood Cell Count 16.57 K/mm3 (4.00-11.30)
[2021-04-08 04:45] LABS: Albumin, Blood 1.7 g/dL (3.4-5.0); Anion Gap 6 mmol/L (6-16); Blood Urea Nitrogen 57 mg/dL (8-24); Bun/Creatinine Ratio 23.8 (12.0-20.0); CO2, Blood 32 mmol/L (21-32); Calcium, Blood 8.8 mg/dL (8.5-10.1); Chloride, Blood 104 mmol/L (98-108); Creatinine, Blood 2.39 mg/dL (0.60-1.20); Glomerular Filtration Rate 27 (60-); Glucose, Blood 170 mg/dL (70-99); Phosphorus, Blood 3.8 mg/dL (2.5-4.9); Potassium, Blood 3.8 mmol/L (3.5-5.5); Sodium, Blood 142 mmol/L (136-145)
--- NOTE | 2021-04-08 04:57 | NUR ---
SHIFT SUMMARY PT A&OX4. SP02>92% ON 2L NC. AT START OF SHIFT PT APPEARED TO BE WORKING HARD BREATHING, TACHYPENIC, ACCESSORY MUSCLE USE. RT CALLED TO ROOM TO GIVE BREATHING TREATMENT AND INCREASE NC TO 4L. PT STATED TX HELPED. FAST FOREWARD END OF SHIFT PT BEGAN GIVING EFFORT BREATHING, RT IN ROOM FOR TX. RN SPOKE WITH PT ABOUT WEARING A CPAP. INITIALY PT REFUSED. AFTER MORE CONVERSATION, PT AGREED. RT FITTED PT W/ CPAP AND PT DID NOT TOLERATE. TOOK IT OFF, STATED HE WOULD HAVE HIS BRING HIS HOME CPAP IN TODAY. TELEMETRY SHOWS A FLUTTER, HR 100'S-120'S. PT DENIED PAIN. REFUSED REPOSITIONING. HERNANDEZ CATHETER DRAINING DARK URINE TO GRAVITY. PICC LINE SALINE LOCKED. CALL LIGHT IN REACH.
--- NOTE | 2021-04-08 10:32 | NUR ---
CARE ASSUMPTION: PATIENT ALERT AND ORIENTED X4. NEURO WNL. VERY WEAK AND TIRED. ABLE TO MOVE ALL EXTREMITIES. DENIES NUMBNESS/TINGLING. PERRLA. EQUAL MARKETING PLANNER STRENGTH. TELE SHOWING AFLUTTER WITH HR 100-110'S. DENIES CHEST PAIN. BP STABLE. NO SIGNS OF EDEMA. LUNGS SOUNGIND COARSE/CRACKLES IN RUL AND CLEAR IN MAIRA. DIMINISHED IN BILATERAL LOWER LOBES. INCREASED IN O2 OVERNIGHT. ON 4L SATING LOW-MID 90'S. PT STATES HE IS FEELING MORE SOB AND CANT GET A FULL BREATH IN. DR. YOUSSEF UPDATED. CHEST XRAY ORDERED. DENIES ABDOMINAL PAIN/NAUSEA. HERNANDEZ CATH IN PLACE DRAINING DARK URINE. NO BM THIS MORNING. ATTENDS IN PLACE. SKIN OVERALL PALE AND FRAGILE WITH REDNESS TO COCCYX. PATIENT REFUSING Q2 TURNS AND STATES HE WILL TELL US WHEN HE WANTS MOVED. PICC LINE IN MALINDA SALINE LOCKED AND FLUSHING WELL. CALL LIGHT IN REACH. FLUID RESTRICTION IN PLACE. WILL CONTINUE TO MONITOR.
--- NOTE | 2021-04-08 11:23 | NUR ---
UPDATE: CALL PLACED TO DR. YOUSSEF TO UPDATE ON AM CHEST XRAY. NO NEW ORDERS AT THIS TIME. WILL CONTINUE TO MONITOR.
[2021-04-08 12:27] LABS: Influenza A, PCR NEGATIVE (NEGATIVE); Influenza B, PCR NEGATIVE (NEGATIVE); Resp Syncytial Virus, PCR NEGATIVE (NEGATIVE); SARS-Cov-2 (COVID-19) PCR, MMC NEGATIVE (NEGATIVE)
--- NOTE | 2021-04-08 17:40 | NUR ---
SHIFT SUMMARY: PATIENT REMAINS ALERT AND ORIENTED X4. TELE REMAINS AFLUTTER WITH HR 100-110'S. DENIES CHEST PAIN/PRESSURE. REMAINS ON 4L NASAL CANNULA. AT TIMES SOUNDING WHEEZY, GETTING BREATHING TREATMENT AT THIS TIME. REMAINS SOB AT TIMES AND TACHYPNEA. HOME CPAP BROUGHT IN BY AND AT BEDSIDE. NO CHANGES IN NEURO. HERNANDEZ CATH REMAINS IN PLACE DRAINING CLEAR/BIBI URINE. REFUSING TURNS. FLUID RESTRICTION MAINTAINED. VITAL SIGNS REMAIN STABLE. WILL CONTINUE TO MONITOR AND REPORT OFF.
--- NOTE | 2021-04-08 23:55 | NUR ---
Assumed care of pt at 1900. A/Ox4. Strict bedrest, refuses turns at times. Maintains low-mid 90's on 5L NC. LS clear upper lobes, R mid and lower lobes fine crackles and L lower lobes dim. Shallow breath pattern. Aflutter on tele maintains 100-110's. Denies CP/Pressure/Pain in general. VSS. +1 BLE pitting edema. Hypoactive bowel tones, only flatus output so far. Urinary catheter draining to gravity clear/orange urine. Will update as changes occur.
[2021-04-09 04:27] LABS: Base Excess Venous 10.8 mmol/L; Bicarbonate Venous 33.2 mmol/L (24.0-30.0); PCO2 Venous 62.6 mmHg (38-42); PO2 Venous 67.1 mmHg (38-42); pH Blood Venous 7.37 (7.34-7.37)
[2021-04-09 05:09] LABS: BASOPHILS ABSOLUTE AUTO 0.07 K/mm3 (0.00-0.23); BASOPHILS PERCENT AUTO 0 % (0-2); EOSINOPHILS ABSOLUTE AUTO 0.35 K/mm3 (0.00-0.68); EOSINOPHILS PERCENT AUTO 2 % (0-6); Hematocrit 26.5 % (37.0-53.0); Hemoglobin 7.8 g/dL (13.5-17.5); IMMATURE GRAN ABSOLUTE AUTO 0.21 K/mm3 (0.00-0.10); IMMATURE GRAN PERCENT AUTO 1 % (0-1); LYMPHOCYTES ABSOLUTE AUTO 0.82 K/mm3 (0.84-5.20); LYMPHOCYTES PERCENT AUTO 4 % (21-46); MONOCYTES ABSOLUTE AUTO 1.07 K/mm3 (0.16-1.47); MONOCYTES PERCENT AUTO 6 % (4-13); Mean Corpuscular HGB 27.6 pg (26.0-34.0); Mean Corpuscular HGB Conc 29.4 g/dL (31.5-36.5); Mean Corpuscular Volume 94 fL (80-100); Mean Platelet Volume 10.6 fL (9.1-12.4); NEUTROPHILS ABSOLUTE AUTO 16.28 K/mm3 (1.96-9.15); NEUTROPHILS PERCENT AUTO 87 % (41-73); Platelet Count 209 K/mm3 (150-400); RDW Coefficient Variation 17.4 % (11.7-14.2); RDW Standard Deviation 55.8 fL (35.1-46.3); Red Blood Cell Count 2.83 M/mm3 (4.30-5.90)
[2021-04-09 05:31] LABS: Albumin, Blood 1.6 g/dL (3.4-5.0); Anion Gap 6 mmol/L (6-16); Blood Urea Nitrogen 65 mg/dL (8-24); Bun/Creatinine Ratio 25.8 (12.0-20.0); CO2, Blood 34 mmol/L (21-32); Calcium, Blood 8.7 mg/dL (8.5-10.1); Chloride, Blood 103 mmol/L (98-108); Creatinine, Blood 2.52 mg/dL (0.60-1.20); Glomerular Filtration Rate 26 (60-); Glucose, Blood 158 mg/dL (70-99); Potassium, Blood 3.6 mmol/L (3.5-5.5); Sodium, Blood 143 mmol/L (136-145)
--- NOTE | 2021-04-09 11:00 | NUR ---
REVIEWED AND AGREE WITH STUDENT NURSE SHIFT ASSESSMENT DOCUMENTATION.
--- NOTE | 2021-04-09 18:31 | NUR ---
SHIFT SUMMARY PT ALERT AND ORIENTED, PATIENT IS VERY TACHYPNEIC WITH SHALLOW BREATHS THROUGHOUT THIS SHIFT. PT ON 6L VIA NASAL CANNULA, IF CANNULA SLIPS OUTSIDE OF THE PATIENT'S NOSE THE PT'S O2 SATURATION WILL DROP TO 70s-80s%. WILL RECOVER TO HIGH 80s/LOW 90s WHEN O2 REAPPLIED. PT ATE VERY LITTLE WITH MEALS, STATES HE IS TOO SHORT OF BREATH TO EAT. WILL HAVE A LITTLE BIT OF SOFT FOOD/FLUIDS FOR MEALS. PT DECLINED REPOSITIONING THIS SHIFT. VSS, IN ATRIAL FLUTTER IN 110s-120s, DISCUSS WITH DR. YOUSSEF. DAVID PATENT, DRAINING TO GRAVITY. PT DENIES PAIN THIS SHIFT. PT'S HOME CPAP IS NOW SET UP AT BEDSIDE, AGREED TO TRY TO USE IT TONIGHT.
--- NOTE | 2021-04-09 21:25 | NUR ---
Assumed care at 1900. Patient A/Ox4 but very drowsy. No Pain/CP/Pressure. Maintaining low 90's on 6L NC. LS clear on top, dim/coarse at bases. Shallow breathing, tachypneic from 24-32, with some accessory muscle use. Aflutter in 110's. VSS. 2+ BLE pitting edema. Thompson draining to gravity orange urine (pt on Rifampin). Patient is very pale. Patient attempted CPAP after 2mg Ativan had time to take effect, patient tolerated for less than a minute then began panicking and reaching for the mask. Will update as changes occur.
[2021-04-10 03:43] LABS: Hematocrit 22.5 % (37.0-53.0); Hemoglobin 6.5 g/dL (13.5-17.5)
[2021-04-10 03:59] LABS: Albumin, Blood 1.6 g/dL (3.4-5.0); Anion Gap 5 mmol/L (6-16); Blood Urea Nitrogen 76 mg/dL (8-24); Bun/Creatinine Ratio 29.2 (12.0-20.0); CO2, Blood 34 mmol/L (21-32); Calcium, Blood 8.6 mg/dL (8.5-10.1); Chloride, Blood 104 mmol/L (98-108); Glomerular Filtration Rate 25 (60-); Glucose, Blood 177 mg/dL (70-99); Phosphorus, Blood 6.4 mg/dL (2.5-4.9); Potassium, Blood 3.9 mmol/L (3.5-5.5); Sodium, Blood 143 mmol/L (136-145)
[2021-04-10 04:32] LABS: pH Blood Arterial 7.26 (7.35-7.45)
[2021-04-10 04:33] LABS: PCO2 Arterial 80.2 mmHg (35-45)
--- NOTE | 2021-04-10 06:06 | NUR ---
ARRIVAL TO ICU PT ARRIVED TO ICU 3 AT 0530 VIA PCU BED AND WAS TRANSFERED OVER TO ICU BED BY SLIDE SHEET. PT IS TACYPNIC AND UNABLE TO SAY MORE THAN A FEW WORDS WITHOUT TAKING A BREATH; PT PLACED ON BIPAP ONCE IN ICU BED; BIPAP SETTINGS 16/8, FIO2 55%, RR 30'S, LS TIGHT AND DIMINISHED. PT IS ALERT/ORIENTED X3 BUT IRRITABLE TO SITUATION ASKING IF THIS WAS "LEAGAL"; HE IS CONSOLABLE; OCCATIONALLY PULLS AGAINST RESTRAINTS; PRECEDEX ON SB AT THIS TIME. AFEBRILE. HR 115. SBP 130. ABD MODERATLY DISTENDED. HERNANDEZ IN PLACE AND DRAINING TO GRAVITY A CLOUDY CRANBERRY COLOR. PICC TO MALINDA PATENT; TYPE AND SCREEN DRAWN AND SENT; ORDERS PROVIDED TO INFUSE 1UNIT OF PRBC AFTER TYPE AND SCREEN. WILL REPORT TO AM RN WHEN AVAILABLE.
--- NOTE | 2021-04-10 08:30 | NUR ---
ASSUMING PT CARE: PT SEDATED W/ PRECEDEX 0.7mcg/kg/hr. AWAKENS W/ VERBAL STIM & INITIALLY CONFUSED & AGITATED. STS "SOMEBODY LOCKED ME UP IN HERE" & "I NEED TO GET OUT OF HERE", PT PULLS @ RESTRAINTS. ABLE TO BE CONSOLED, REORIENTED. TOLERATING THE BiPAP MUCH BETTER. +SWB RESTRAINTS, DOOR/CURTAIN OPEN, RN NEARBY, & OTHER UNIT STAFF MADE AWARE OF PT. 1unit PRBCs STARTED. MONITOR ALARMING ST ELEVATION/DEPRESSION, VERIFIED W/ PREVIOUS EKG & APPEARS UNCHANGED. SEE INITIAL SHIFT DOCUMENTATION FOR FULL ASSESSMENT.
[2021-04-10 12:09] LABS: Hematocrit 29.6 % (37.0-53.0); Hemoglobin 8.7 g/dL (13.5-17.5)
--- NOTE | 2021-04-10 15:15 | NUR ---
UPDATE: BiPAP BREAK PT CONTINUES TO REST IN BED, TOLERATING BiPAP MASK WELL, RR 20-26, SPO2 98%. PT ABLE TO OPEN EYES TO VERBAL, NOD TO YES/NO QUESTIONS. PRECEDEX ON SB. RT @ BEDSIDE & PT CHANGED TO HF 60L, 60% FiO2. AFTER A FEW REMINDERS TO TAKE IN DEEP BREATHS & EXPAND THE LUNGS, PT APPEARS TO BE TOLERATING HF WELL. WILL MONITOR CLOSELY FOR CHANGES & REPORT APPROPRIATE.
[2021-04-10 17:25] LABS: Hematocrit 29.6 % (37.0-53.0); Hemoglobin 8.8 g/dL (13.5-17.5)
--- NOTE | 2021-04-10 18:16 | NUR ---
UPDATE: SHAHANA HARKINS @ BEDSIDE, UPDATED ON PT PROGRESSION T/O THE NIGHT. SHAHANA IS PLEASE W/ PT's PROGRESS & BELIEVES THE PT MAY BE ABLE TO BE DC HOME IN A FEW DAYS. PT IS SOMEWHAT CONFUSED, PARANOID, STATING "EVERYTHING WAS FINE UNTIL I SAW YOU GUYS" "I DON'T UNDERSTAND IT". PER SHAHANA, PT TO BE GIVEN PO FLUID TRIAL. PT TOOK 1 SM SIP & DID WELL, HOWEVER PT TOOK A 2ND LARGER DRINK & BEGAN TO COUGH & THEN VOMIT WATER & COUGH UP THICK BROWN SPUTUM. LS COARSE, CLEAR W/ COUGHING. WILL KEEP PT NPO FOR NOW UNTIL MORE AWAKE.
--- NOTE | 2021-04-10 19:40 | NUR ---
ASSUMED PT CARE AT 1900 FROM HEATH RN PT AWAKE IN BED, RESPONSIVE. CONFUSED AND HOLLERS OUT OCCASIONALLY. HIFLOW NC AT 60L WITH FIO2 60% WITH SPO2 >90% WITH RR 30'S. PT VERY SOB WITH A PRODUCTIVE COUGH. PER REPORT PT ASPIRATED ON WATER EARLIER TODAY AND HAS BEEN MORE COARSE AND WHEEZY ON RIGHT SIDE; WILL KEEP PT NPO FOR THE NIGHT WITH POSSIBLE ICE CHIPS HE TOLERATES. PT IS IN AFLUTTER WITH RATE 110-120'S. BP'S LABILE, BUT STABLE; SEE FLOWSHEET. PT IS CURRENTLY ON A LASIX GTT AT 5MG/HR WITH NS AT TKO INFUSING WITH A GOAL OF URINE OUTPUT AT 150MLS/HR. PRECEDEX IS ON STANDBY. PICC LINE TO LEFT UPPER ARM. PT RECENTLY PLACED ON BIPAP WITH PRESSURES 16/8; FIO2 55% D/T PT BEING SOB AND WHEEZY. SEE SHIFT SUMMARY FOR FURTHER DETAILS.
--- NOTE | 2021-04-10 20:30 | NUR ---
DR. MCCOY UPDATED REGARDING PT'S ASPIRATION EARLIER TODAY WITH PT CURRENTLY BEING NPO. ORDERS TO CHANGE RIFAMPIN TO IV AND DISCONTINUE ELIQUIS AND START ON LOVENOX R/T PE.
--- NOTE | 2021-04-10 20:45 | NUR ---
DR. CAR ROUNDING UPDATED DR. CAR REGARDING LASIX GTT TO URINE OUTPUT. ORDERS TO INCREASE TO 40MG/HR. RAISED CONCERN ABOUT PT'S BLOOD PRESSURE. DR. CAR THEN STATED TO START AT 20MG/HR.
--- NOTE | 2021-04-10 20:54 | NUR ---
DR. DILLON UPDATE REGARDING PT'S NPO STATUS CURRENTLY D/T ASPIRATION TODAY. NO NEW ORDERS WITH CHANGING AMIO FROM PO TO GTT. ORDERS TO HOLD TONIGHT AND THEY CAN RE-EVALUATE RATE AND RHYTHM IN THE AM.
--- NOTE | 2021-04-10 23:00 | NUR ---
RESTRAINTS PT CONTINUES TO HOLLER THROUGH BIPAP MASK, RIPPED IT OFF. INFORMED HIM WE COULD TRY THE AIRVO AGAIN; HOWEVER, PT REFUSED. GRABBED ON TO THE BIPAP TUBING AND CONTINUED TO YELL NO. PT REMAINS CONFUSED AND FORGETFUL. PLACED IN RESTRAINTS AND PLACED BACK ON BIPAP. OXYGEN SATURATIONS DROPPED TO 60% WITHOUT OXYGEN IN PLACE. PT CONTINUES TO SAY WE ARE TRYING TO KILL HIM. INFORMED HIM THAT WE ARE TRYING TO HELP HIM LIVE AND IF HE WISHED TO THAT WOULD BE A CONVERSATION TO HAVE WITH HIS AND THE PHYSICIAN IN THE MORNING REGARDING CHANGING HIS CODE STATUS. PT CONTINUED TO SAY WE WERE LYING TO HIM AND TRYING TO KILL HIM.
--- NOTE | 2021-04-10 23:28 | NUR ---
DR. CAR UPDATE REGARDING URINE OUTPUT WITH LASIX AT 40MG/HR. ALSO INFORMED THAT LEVOPHED HAD TO BE STARTED AND IS NOW AT 8MCG/MIN. ORDERS TO CONTINUE LASIX GTT
[2021-04-10 23:52] LABS: Hematocrit 28.6 % (37.0-53.0); Hemoglobin 8.7 g/dL (13.5-17.5)
[2021-04-11 04:19] LABS: PCO2 Arterial 54.9 mmHg (35-45); PO2 Arterial 67.3 mmHg (80-100); pH Blood Arterial 7.41 (7.35-7.45)
--- NOTE | 2021-04-11 04:56 | NUR ---
END OF SHIFT SUMMARY PT HAS NOT SLEPT ALL NIGHT; VERY CONFUSED WITH VISUAL HALLUCINATIONS NOTED. PT MAY BENEFIT FROM SLEEP AID IN ORDER TO DECREASE HALLUCINATIONS AND CONFUSED EPISODES. HE CONTINUES TO HOLLER "HELP" FROM ROOM AND ONCE REORIENTED THAT HE IS IN A HOSPITAL WITH OTHERS SLEEPING, HE IS VERY APOLOGETIC. PRECEDEX AT 1MCG/KG/HR WITH PT ABLE TO COME OUT OF RESTRAINTS AND NOT PULL AT BIPAP/AIRVO. PT IS CURRENTLY ON AIRVO AT 60L; FIO2 50% WITH SPO2 94%, RR 20'S. PT REMAINS AFLUTTER/FIB WITH RATE 100-110'S. LEVOPHED UP TO 16MCG/MIN TO MAINTAIN MAP >65 MMHG. LASIX GTT REMAINS ON AT 40MG/HR WITH GOAL URINE OUTPUT OF 150ML/HR. ATTEMPTED TO ACCESS ANOTHER IV D/T ONE LUMEN PICC LINE WITH NO SUCCESS D/T VERY SMALL VESSELS NOTED TO BILATERAL ARMS WITH SONOSITE. PT CONTINUES TO REMAIN HIGH ASPIRATION RISK WITH COUGHING EPSIDOES NOTED EVEN AFTER GIVEN AN ICE CHIP. HERNANDEZ CATHETER IS PATENT AND DRAINING ORANGE URINE TO GRAVITY. WILL CONTINUE TO MONITOR UNTIL REPORT IS HANDED OFF TO ONCOMING RN.
[2021-04-11 05:36] LABS: Hemoglobin 8.9 g/dL (13.5-17.5)
[2021-04-11 05:59] LABS: Albumin, Blood 1.6 g/dL (3.4-5.0); Anion Gap 10 mmol/L (6-16); Blood Urea Nitrogen 96 mg/dL (8-24); Bun/Creatinine Ratio 27.3 (12.0-20.0); CO2, Blood 32 mmol/L (21-32); Calcium, Blood 8.6 mg/dL (8.5-10.1); Chloride, Blood 104 mmol/L (98-108); Creatinine, Blood 3.52 mg/dL (0.60-1.20); Free Thyroxine 0.51 ng/dL (0.70-1.60); Glomerular Filtration Rate 17 (60-); Glucose, Blood 202 mg/dL (70-99); Phosphorus, Blood 5.5 mg/dL (2.5-4.9); Potassium, Blood 3.7 mmol/L (3.5-5.5); Sodium, Blood 146 mmol/L (136-145)
--- NOTE | 2021-04-11 08:11 | NUR ---
AM NOTE.... ASSUMED CARE OF PT AT 0700, THE PT IS A&Ox2 ABLE TO STATE HIS NAME AN BUT DOES NOT KNOW WHERE HE IS, THINKS THE YEAR IS 2022. THE PT IS ON PRECEDEX GTT AT 1.0MCG/KG/HR. THE PT IS IN A FLUTTER IN THE LOW 100'S, HE IS ON A LEVOPHED DRIP RUNNING AT 17MCG TO KEEP MAPS >60. THE PT WAS ALSO ON A LASIX DRIP AT 40MG/HR AT THE START OF THIS SHIFT TO KEEP URINARY OUTPUT AT 150MLS/HR THIS WAS STOPPED PER DR. CAR AT 0700. DURING REPORT WITH NOC SHIFT RN THE PT'S LEVOPHED WAS INCREASED FROM 17MCG TO 20MCG TO KEEP MAPS>60. THE PT HAS 1+ EDEMA TO HIS BILATERAL FEET, DEPENDENT EDEMA TO HIS BILATERAL HANDS AND GENERALIZED NONPITTING EDEMA. THE PT IS ON THE AIRVO AT 60L AND 50% FIO2 WITH O2 SATS >90% L/S CLEAR AND DIM T/O RR IN THE 20'S, THE PT BECOMES MORE DYSPNEIC WITH MOVEMENT. BT PRESENT AND HYPOACTIVE, ABD IS SOFT AND NONTENDER TO PALPATION. THE PT'S HERNANDEZ IS PATENT AND DRAINING TO GRAVITY. THE PT'S CURRENT TEMP IS 100.4. DURING THIS ASSESSMENT THE PT'S MAP STARTED TO DECREASE AND THE LEVOPHED WAS INCREASED TO 22MCG. PROVIDER WAS CALLED AND AN ORDER WAS OBTAINED TO CONSULT DR. PULIDO. DR. PULIDO WAS NOTIFIED BY CHARGE NURSE ESTRELLA. WILL CONTINUE TO MONITOR.
[2021-04-11 09:38] LABS: BASOPHILS ABSOLUTE AUTO 0.12 K/mm3 (0.00-0.23); BASOPHILS PERCENT AUTO 1 % (0-2); EOSINOPHILS ABSOLUTE AUTO 0.28 K/mm3 (0.00-0.68); EOSINOPHILS PERCENT AUTO 1 % (0-6); Hematocrit 31.5 % (37.0-53.0); Hemoglobin 9.5 g/dL (13.5-17.5); IMMATURE GRAN ABSOLUTE AUTO 0.31 K/mm3 (0.00-0.10); IMMATURE GRAN PERCENT AUTO 2 % (0-1); LYMPHOCYTES ABSOLUTE AUTO 0.91 K/mm3 (0.84-5.20); LYMPHOCYTES PERCENT AUTO 4 % (21-46); MONOCYTES ABSOLUTE AUTO 1.07 K/mm3 (0.16-1.47); MONOCYTES PERCENT AUTO 5 % (4-13); Mean Corpuscular HGB 27.9 pg (26.0-34.0); Mean Corpuscular HGB Conc 30.2 g/dL (31.5-36.5); Mean Corpuscular Volume 92 fL (80-100); Mean Platelet Volume 10.1 fL (9.1-12.4); NEUTROPHILS ABSOLUTE AUTO 18.14 K/mm3 (1.96-9.15); NEUTROPHILS PERCENT AUTO 87 % (41-73); NRBC ABSOLUTE 0.03 K/mm3 (0.00-0.02); NRBC Auto 0.1 /100 WBC (0.0-0.2); Platelet Count 362 K/mm3 (150-400); RDW Coefficient Variation 17.6 % (11.7-14.2); RDW Standard Deviation 55.1 fL (35.1-46.3); Red Blood Cell Count 3.41 M/mm3 (4.30-5.90); White Blood Cell Count 20.83 K/mm3 (4.00-11.30)
[2021-04-11 09:46] LABS: Source, Urine Foley catheter
[2021-04-11 09:56] LABS: Bilirubin, Urine Neg (Neg); Blood, Urine 2+ (Neg); Color, Urine Yellow (P-Yellow); Glucose Qualitative, Urine Neg (Neg); Ketones, Urine Neg (Neg); Leukocyte Esterase, Urine 2+ (Neg); Nitrite, Urine Pos (Neg); Urobilinogen, Urine NORM (Normal)
[2021-04-11 09:58] LABS: Appearance, Urine Hazy (Clear); Protein, Urine 2+ (Neg); Specific Gravity, Urine 1.015 (1.003-1.022)
[2021-04-11 10:08] LABS: Bacteria Many /hpf
[2021-04-11 10:09] LABS: RBC Cast 0-2 /lpf (0)
[2021-04-11 10:10] LABS: Mucus Light (0-Heavy)
[2021-04-11 10:11] LABS: Squamous Epithelial Cells Few /hpf (Few)
[2021-04-11 10:15] LABS: Yeast/Fungi Urine Rare /hpf
[2021-04-11 11:09] LABS: International Normalized Ratio 1.35; Prothrombin Time Results 13.9 Sec (9.7-11.5)
--- NOTE | 2021-04-11 11:36 | NUR ---
Echocardiogram completed.
--- NOTE | 2021-04-11 14:15 | NUR ---
PT UPDATE..... AT 1222 THE LEVOPHED WAS TITRATED OFF THE PT'S MAPS HAVE BEEN STABLE >65. AT APROX 1400 THE PT REMOVED HIS AIRVO CANNULA FROM HIS NOSE, HIS O2 SATS WERE STABLE ON RA >90% RT WAS NOTIFIED AND THE PT WAS CHANGED OVER TO NC AT 5L THE PT'S O2 SATS WERE STABLE AT 93%. THE PT'S WAS UPDATED ON THE PT'S CONDITION AND THE PLAN OF CARE. ECHO WAS DONE AND READ BY SHOESHINER, NO NEW ORDERS. THE HEPARIN DRIP WAS STARTED PER ORDERS, NO NEW SIGNS/SYMPTOMS OF BLEEDING HAS BEEN NOTED. CALL LIGHT IN REACH WILL CONTINUE TO MONITOR.
--- NOTE | 2021-04-11 17:27 | NUR ---
SHIFT SUMMARY.... NO ACUTE NEGATIVE CHANGES NOTED SINCE PREVIOUS NOTES, THE PT'S VS HAVE BEEN STABLE OFF OF LEVOPHED SINCE APROX 1230. THE PT CONTINUES TO BE ON A NC AT 4L WITH O2 SATS >90%. THE PT HAS NOT HAD A BM THIS SHIFT. THE PT'S HERNANDEZ IS PATENT AND DRAINING TO GRAVITY. THE PT'S PRECEDEX HAS BEEN TITRATED DOWN FROM 1.0MCG/KG/HR TO 0.4MCG/KG/HR ON THIS DOSE THE PT HAS BEEN YELLING OUT MORE AND CONTINUES TO BE CONFUSED. THE PT HAS NOT BEEN IMPULSIVE THIS SHIFT. THE PT'S HEPARIN GTT IS RUNNING PER ORDERS AT 18U/KG/HR, NO SIGNS/SYMPTOMS OF BLEEDING IS NOTED. THE PT HAS BEEN ABLE TO TOLERATE SMALL SIPS OF WATER FROM A SPOON THIS SHIFT BUT HAS NOT BEEN ABLE TO TOLERATE DRINKING FROM A GLASS WITHOUT COUGHING. CALL LIGHT IN REACH WILL CONTINUE TO MONITOR UNTIL REPORT IS GIVEN TO ONCOMING RN.
--- NOTE | 2021-04-11 19:15 | NUR ---
ASSUMPTION OF CARE PT AWAKE AND WATCHING TV. PT MAKES EYE CONTACT AND PARTICIPATES IN CONVERSATION ALTHOUGH PT CONFUSED AND HAVING VISUAL HALLUCINATIONS. PT RECEIVING PRECEDEX 0.4MCG/KG/HR AND HEPARIN 18UNITS/KG/HR. PT ON 4L VIA NC. VSS AT THIS TIME. HERNANDEZ PATENT AND DRAINING. SEE SHIFT ASSESSMENT.
--- NOTE | 2021-04-12 01:46 | NUR ---
NOSEBLEED PT SWITCHED TO BIPAP MASK AROUND MIDNIGHT AND PT C/O FEELING LIKE HIS NOSE IS PLUGGED. R NARE APPEARS CLOGGED WITH DRIED BLOOD. AFTER HAVING BIPAP MASK ON FOR ABOUT 15-20MIN, THE CLOT IN THE R NARE BECAME LOOSE AND NOSEBLEED BEGAN. PT ON HEPARIN GTT SO NOSE CONTINUES TO BLEED. PT SWITCHED TO VENTURI MASK. AFRIN ORDERED AND ADMINISTERED. DR SINGH FROM ED CAME TO EVALUATE POSSIBLE NEED FOR RHINO ROCKET. DR SINGH REMOVED LARGE CLOT FROM R NARE. INSTRUCTED TO LEAVE NASAL CLIP ON FOR APPROX 45MIN AND RE-EVALUATE. HEPARIN SHUT OFF PER PHARMACY AND TO BE RESTARTED AFTER 30MIN.
[2021-04-12 04:05] LABS: BASOPHILS ABSOLUTE AUTO 0.08 K/mm3 (0.00-0.23); BASOPHILS PERCENT AUTO 1 % (0-2); EOSINOPHILS ABSOLUTE AUTO 0.33 K/mm3 (0.00-0.68); EOSINOPHILS PERCENT AUTO 2 % (0-6); Hematocrit 26.4 % (37.0-53.0); IMMATURE GRAN ABSOLUTE AUTO 0.12 K/mm3 (0.00-0.10); IMMATURE GRAN PERCENT AUTO 1 % (0-1); LYMPHOCYTES ABSOLUTE AUTO 0.54 K/mm3 (0.84-5.20); LYMPHOCYTES PERCENT AUTO 4 % (21-46); MONOCYTES ABSOLUTE AUTO 0.69 K/mm3 (0.16-1.47); MONOCYTES PERCENT AUTO 4 % (4-13); Mean Corpuscular HGB 27.9 pg (26.0-34.0); Mean Corpuscular HGB Conc 30.3 g/dL (31.5-36.5); Mean Corpuscular Volume 92 fL (80-100); Mean Platelet Volume 10.4 fL (9.1-12.4); NEUTROPHILS ABSOLUTE AUTO 13.78 K/mm3 (1.96-9.15); NEUTROPHILS PERCENT AUTO 89 % (41-73); NRBC ABSOLUTE 0.02 K/mm3 (0.00-0.02); NRBC Auto 0.1 /100 WBC (0.0-0.2); Platelet Count 227 K/mm3 (150-400); RDW Coefficient Variation 17.6 % (11.7-14.2); RDW Standard Deviation 56.9 fL (35.1-46.3); Red Blood Cell Count 2.87 M/mm3 (4.30-5.90); White Blood Cell Count 15.54 K/mm3 (4.00-11.30)
[2021-04-12 04:27] LABS: International Normalized Ratio 1.48; Prothrombin Time Results 15.1 Sec (9.7-11.5)
[2021-04-12 04:31] LABS: Albumin, Blood 1.7 g/dL (3.4-5.0); Albumin/Globulin Ratio 0.4 (0.8-1.8); Bilirubin, Direct 1.4 mg/dL (0.0-0.3); Bilirubin, Indirect 0.7 mg/dL (0.1-0.7); Bilirubin, Total 2.1 mg/dL (0.1-1.0); Calcium, Blood 8.6 mg/dL (8.5-10.1); Creatinine, Blood 3.48 mg/dL (0.60-1.20); Globulin, Blood 4.5 g/dL (2.2-4.0); Phosphorus, Blood 4.5 mg/dL (2.5-4.9); Potassium, Blood 3.1 mmol/L (3.5-5.5); Total Protein, Blood 6.2 g/dL (6.4-8.2)
--- NOTE | 2021-04-12 06:03 | NUR ---
SHIFT SUMMARY PT ON 15L VENTURI MASK. OCCASIONALLY PT TAKES MASK OFF AND DESATS TO MID 80S QUICKLY. MASK REAPPLIED SEVERAL TIMES. PT REMAINS CONFUSED WITH AUDITORY AND VISUAL HALLUCINATIONS. PT REDIRECTABLE BUT OFTEN BURSTS OUT AND CALMS WITH REASSURANCE. PT RECEIVING PRECEDEX 1.0MCG/KG/HR AND HEPARIN 17UNITS/KG/HR. PT HAD NOSE BLEED IN MIDDLE OF SHIFT THAT RESOLVED A FEW HOURS LATER, SEE OTHER NOTE FOR MORE INFORMATION. NOW NOSE IS STARTING TO BLEED AGAIN, NOSE CLAMP PLACED. HERNANDEZ PATENT AND DRAINING ORANGE URINE WITH ADEQUATE OUTPUT. WILL REPORT TO ONCOMING RN.
--- NOTE | 2021-04-12 06:54 | NUR ---
UPDATE PT CONTINUES TO HAVE EPISTAXIS. CALL PLACED TO DR PULIDO, VERBAL ORDER RECEIVED TO STOP HEPARIN. HEPARIN STOPPED, PHARMACY NOTIFIED. RT AT BEDSIDE TO SWITCH PT TO NON-REBREATHER MASK TO IMPROVE O2 SATS.
--- NOTE | 2021-04-12 07:54 | NUR ---
AM NOTE.... ASSUMED CARE OF PT AT 0700, THE PT IS A&Ox2 ABLE TO FOLLOW COMMANDS, HE IS CONFUSED BUT REORIENTED EASILY. THE PT'S VS ARE STABLE THIS AM, HE IS IN AFLUTTER IN THE LOW 100'S. THE PT HAS 1+ EDEMA TO HIS BLE WELL GENERALIZED. THE PT IS ON 8L HI FLOW NC VIA HIS MOUTH TO KEEP O2 SATS >90% THE PT HAS A NOSE BLEED WITH A CLAMP IN PLACE. L/S CLEAR AND DIM T/O. RR IS IN THE 20'S. BT PRESENT AND HYPOACTIVE ABD HAS MODERATE DISTENTION AND IS FIRM TO PALPATION. HERNANDEZ IS PATENT AND DRAINING TO GRAVITY. THE PT'S HEPARIN GTT WAS PLACED ON HOLD D/T THE NOSE BLEED. AFTER THE PT'S AM ASSESSMENT HE STARTED TO COUGH AND GAG, CHARGE NURSE IN THE ROOM TO ASSIST THE PT, THE PT STARTED TO DESAT DOWN TO THE LOW 70'S THE PT WAS GAGGING ON A VERY LARGE BLOOD CLOT APROX 10 CM LONG, THIS WAS REMOVED VIA HIS MOUTH, THE PT WAS PLACED ON A NON-REBREATHER AT 15L HIS O2 SATS SLOWLY IMPROVED UP TO 100%. WILL CONTINUE TO MONITOR.
--- NOTE | 2021-04-12 09:27 | NUR ---
PT UPDATE.... THE PT HAD ANOTHER EPISODE OF PULLING OFF HIS OXYGEN AND DESATURATING, THE PT STATED HE FELT MORE SHORT OF BREATH, THIS RN REASSESSED THE PT'S LUNG SOUNDS AND FOUND COARSE CRACKLES AND WHEEZES ON THE RIGHT SIDE. THE PT ALSO HAS STARTED COUGHING WHICH HE WAS NOT DOING AT THE START OF THIS SHIFT. CHARGE NURSE NOTIFIED. CARDIOLOGY CONSULT WAS ALSO CALLED IN BY THIS RN. SOCIAL STUDIES DEPARTMENT CHAIR TO ASSESS THE PT. WILL CONTINUE TO MONITOR.
[2021-04-12 15:29] LABS: Hematocrit 25.4 % (37.0-53.0); Hemoglobin 7.7 g/dL (13.5-17.5)
--- NOTE | 2021-04-12 17:06 | NUR ---
Update received from pt's RN after met with Supervisor Sunglasses. Current plan is to cont treatment with no escalation of treatment and change in code status to DNR. requesting additional family members be allowed in to visit today. Discussed with RN and lost charge card clerk, one time allowance for daughters to come in today since pt is gravely ill. has not chosen comfort care at this time. Pal [facility] to check in tomorrow and offer support to /family/staff.
--- NOTE | 2021-04-12 17:24 | NUR ---
SHIFT SUMMARY.... THE PT CONTINUES ON THE NON-REBREATHER MASK WITH O2 SATS >90%, PT HAS BEEN UNABLE TO TOLERATE THE NC IN HIS MOUTH D/T HIS BLOODY NOSE HE IS UNABLE TO PT THE NC IN HIS NARES. THE PT'S VS HAVE BEEN STABLE T/O THIS SHIFT WITH HR IN THE 90'S-100'S AND BP WITH MAPS >65. THE PT CONTINUES ON THE PRECEDEX DRIP AT 1.0MCG/KG/HR. THE PT HAS BEEN MORE CONFUSED TODAY THAN HE WAS YESTERDAY, THE PT'S WAS CALLED AND HAD A MEETING WITH THIS RN AND THE BUILDING PRINCIPAL ABOUT THE PT'S PROGNOSIS AND PLAN OF CARE, THE PT WAS CHANGED FROM A DNI TO A DNR AND THE PT'S DECIDED NOT ACCELERATE HIS CARE BUT TO CONTINUE WITH THE COURSE OF ANTIBIOTICS AND OTHER CURRENT TREATMENTS. THE PT'S BLOODY NOSE HAS FINALLY STOPPED THIS AFTERNOON. ORAL CARE HAS BEEN DONE SEVERAL TIMES PER HOUR THIS SHIFT. THE PT'S URINARY OUTPUT HAS DECREASED FROM YESTERDAY, DR. CAR NOTIFIED AND A ONE TIME ORDER OF IV LASIX WAS OBATAINED. THE PT'S DAUGHTERS WERE ALLOWED INTO VISIT THE PT D/T THE PT'S POOR PROGNOSIS AT THIS TIME. CALL LIGHT IN REACH WILL CONTINUE TO MONITOR UNTIL REPORT IS GIVEN TO ONCOMING RN.
--- NOTE | 2021-04-12 18:47 | NUR ---
PT UPDATE.... THIS RN WENT INTO THE PT'S ROOM TO CHECK ON THE PT, HE ASKED THIS RN "IS THIS WHEN I ?" THIS RN ATTEMPTED TO PROVIDE COMFORT AND UPDATE THE PT ON HIS CURRENT CONDITION WHICH WAS STABLE AT THIS TIME. THE PT THEN SAID "NO PLEASE JUST LET ME IM DONE I AM TIRED AND I AM READY TO ." THE PT THEN STARTED TO YELL OUT "HELP ME" THE PT'S PRECEDEX WAS INCREASED FROM 1.0MCG/KG/HR TO 1.2MCG/KG/HR. WILL CONTINUE TO MONITOR.
--- NOTE | 2021-04-12 21:21 | NUR ---
ASSUMPTION OF CARE PT IS ON NON REBREATHER MASK AT 15LPM. RECEIVING PRECEDEX 1.2MCG/KG/HR. PT BEGINNING TO HAVE ANOTHER NOSE BLEED. HE IS AWAKE AND LOOKING AROUND THE ROOM, OCCASIONALLY HOLLERS OUT. PT CONTINUES TO BE CONFUSED AND RESTLESS BUT HAS MOMENTS OF CLARITY. HERNANDEZ PATENT AND DRAINING TO GRAVITY.
[2021-04-13 03:46] LABS: BASOPHILS ABSOLUTE AUTO 0.06 K/mm3 (0.00-0.23); BASOPHILS PERCENT AUTO 1 % (0-2); EOSINOPHILS ABSOLUTE AUTO 0.46 K/mm3 (0.00-0.68); EOSINOPHILS PERCENT AUTO 5 % (0-6); Hematocrit 26.4 % (37.0-53.0); Hemoglobin 7.8 g/dL (13.5-17.5); IMMATURE GRAN ABSOLUTE AUTO 0.09 K/mm3 (0.00-0.10); IMMATURE GRAN PERCENT AUTO 1 % (0-1); LYMPHOCYTES ABSOLUTE AUTO 0.45 K/mm3 (0.84-5.20); LYMPHOCYTES PERCENT AUTO 4 % (21-46); MONOCYTES ABSOLUTE AUTO 0.47 K/mm3 (0.16-1.47); MONOCYTES PERCENT AUTO 5 % (4-13); Mean Corpuscular HGB 28.3 pg (26.0-34.0); Mean Corpuscular HGB Conc 29.5 g/dL (31.5-36.5); Mean Corpuscular Volume 96 fL (80-100); Mean Platelet Volume 10.2 fL (9.1-12.4); NEUTROPHILS ABSOLUTE AUTO 8.71 K/mm3 (1.96-9.15); NEUTROPHILS PERCENT AUTO 85 % (41-73); Platelet Count 194 K/mm3 (150-400); RDW Coefficient Variation 17.8 % (11.7-14.2); RDW Standard Deviation 59.6 fL (35.1-46.3); Red Blood Cell Count 2.76 M/mm3 (4.30-5.90); White Blood Cell Count 10.24 K/mm3 (4.00-11.30)
[2021-04-13 04:05] LABS: Anion Gap 7 mmol/L (6-16); Blood Urea Nitrogen 97 mg/dL (8-24); Bun/Creatinine Ratio 27.2 (12.0-20.0); CO2, Blood 34 mmol/L (21-32); Calcium, Blood 8.4 mg/dL (8.5-10.1); Chloride, Blood 112 mmol/L (98-108); Creatinine, Blood 3.57 mg/dL (0.60-1.20); Glomerular Filtration Rate 17 (60-); Glucose, Blood 166 mg/dL (70-99); Phosphorus, Blood 6.5 mg/dL (2.5-4.9); Potassium, Blood 3.9 mmol/L (3.5-5.5); Sodium, Blood 153 mmol/L (136-145)
--- NOTE | 2021-04-13 05:16 | NUR ---
SHIFT SUMMARY PT REMAINS ON NON REBREATHER AT 15L. SPO2 >96% BUT DESATS QUICKLY IF HE TAKES THE MASK OFF. HE IS RECEIVING PRECEDEX 1.0MCG/KG/HR AND NS TKO. PT IS CONFUSED WITH OCCASIONAL AUDITORY AND VISUAL HALLUCINATIONS. HE DOES HAVE MOMENTS OF CLARITY AND CAN PARTICIPATE IN CONVERSATION. PT HAS BEEN ABLE TO REST ON AND OFF THROUGHOUT NIGHT. ATTEMPTED SMALL SIP OF WATER AT BEGINNING OF SHIFT, PT BEGAN TO COUGH AND HAS BEEN NPO SINCE. ORAL CAVITY VERY DRY, ORAL CARE PROVIDED. HERNANDEZ PATENT AND DRAINING ORANGE URINE TO GRAVITY. TMAX 99.7. SHEET REMOVED AND FAN PROVIDED. WILL REPORT TO ONCOMING RN.
--- NOTE | 2021-04-13 07:46 | NUR ---
AM NOTE.... ASSUMED CARE OF PT AT 0700, AT THE START OF THIS ASSESSMENT THE PT WOKE UP PULLED HIS MASK OFF AND WAS IN A FULL PANIC, HE WAS YELLING TO "GET THE BELT OFF" WHEN ASKED WHAT BELT HE WAS TALKING ABOUT THE PT POINTED INTO THE AIR INFRONT OF HIM. THE PT IS ON A NONREBREATHER MASK AT 15L WITH O2 SATS AT 100% BUT WHEN THE MASK IS OFF HIS O2 SATS DROP QUICKLY DOWN TO THE LOW 80'S. THE PT'S RR IS IN THE 30'S, LABORED AND SHALLOW, L/S COARSE CRACKLES HEARD IN THE UPPER LOBES AND DIM IN THE MID/LOWER LOBES. THE PT'S PRECEDEX WAS INCEASED FROM 1.2MCG/KG/HR TO 1.4MCG/KG/HR. THE PT IS IN AFLUTTER IN THE 100'S-120'S THE PT'S BP IS SOFT BUT STABLE. THE PT HAS 1+ EDEMA TO HIS BLE. AND DEPENDENT EDEMA TO HIS ABD/HIPS. THE PT'S HERNANDEZ IS PATENT AND DRAINING TO GRAVITY. WILL CONTINUE TO MONITOR.
--- NOTE | 2021-04-13 13:35 | NUR ---
PT UPDATE.... PT WAS CHANGED TO COMFORT CARE PER THE AND FAMILY'S WISHES. THE PT'S CARDIZEM DRIP AND PRECEDEX DRIP WERE STOPPED BY THIS RN.
--- NOTE | 2021-04-13 14:33 | NUR ---
Palliative Care - Summary of visits and case conferences/conversations with Steff Houston and Anatoly, nursing, . After my phone conversation with this am to update on current status and concerns, and pt's expressed desire to "be done". reports that having their three daughters allowed in to visit yesterday provided time for all of them to talk, laugh, cry and come to the understanding that Tonio is not going to get better. is in support of pt's wishes and transitioning to comfort care. She will be in shortly and will let the nurse know when she'd like that to happen. Update provided to bedside RN, Steff Houston & Anatoly, insulation cupola charger and dietitian. VO obtained for comfort care and those orders entered. was given very detailed information re: which tx would be d/c'd and medications used for comfort during my phone call with her. When I returned to ICU, she was at the bedside, with her head down on pt's bed. I did not disturb her but will return prn family request or if indicated. Plan is for f/u for s/s managment and support to pt/, family and staff. During my visit this am, pt did not wake. He appears frail and profoundly fatigued. RN noted decreased UO today, even with lasix. He was also requiring increased presedex dosing for anxiety/agitation. I did not note nonverbal indicators of pain, anxiety, increased dyspnea or distress during my visit. RN has been working on s/s management successfully this am. Later in the day, pt exhibiting air hunger and orders entered for Roxanol and ativan once decision made by to transition to comfort care.
--- NOTE | 2021-04-13 17:36 | NUR ---
PT TRANSFERRED FROM ICU 3 TO ROOM 334 AT 1635- PT SEMI-COMATOSE, OCCASIONAL PURPOSEFUL MOVEMENT OF ARMS OR HEAD. HAS OCC GRIMACE AND SIGNS OF AIR HUNGER, RR 22- COMPLETED ORAL CARE WITH LG AMOUNTS OF BLOOD TINGED SALIVA IN BACK OF THROAT. SHALLOW RESP. HEAD PROPPED WITH NECK PILLOW. MEDICATED WITH ROXONOL AND ATROPINE GTTS. HERNANDEZ PATENT AND DRAINING MED YELLOW. O2 NC 4L FOR COMFORT.
--- NOTE | 2021-04-13 20:59 | NUR ---
PATIENT AT 2054. AT BEDSIDE.
--- NOTE | 2021-04-13 21:14 | NUR ---
PHYSICIAN COMMUNICATION. CONTACTED DR MCCOY TO NOTIFY HIM OF PATIENT'S PASSING.
== END 2021-04-13 20:55 | DRG 288 ==
LOC: ER 21:27 → PCU 21:28 → ER 23:54 → PCU 03-30 03:10 → ICUE 03-31 10:01 → PCU 03-31 10:03 → ICUE 04-10 05:30 → MEDS 04-13 16:34
PROVIDERS: Family Medicine; Internal Medicine; Internal Medicine Critical Care Medicine; Internal Medicine Nephrology; Student in an Organized Health Care Education/Training Program; ADMIT Internal Medicine
PROC: 0W993ZZ Drainage of Right Pleural Cavity, Percutaneous Approach (ICD-10-PCS; principal; 2021-03-30)
PROC: 0DJ08ZZ Inspection of Upper Intestinal Tract, Via Natural or Artificial Opening Endoscopic (ICD-10-PCS; 2021-04-04)
PROC: 0DJD8ZZ Inspection of Lower Intestinal Tract, Via Natural or Artificial Opening Endoscopic (ICD-10-PCS; 2021-04-04)
PROC: 0DBL8ZZ Excision of Transverse Colon, Via Natural or Artificial Opening Endoscopic (ICD-10-PCS; 2021-04-06)
PROC: 5A09357 Assistance with Respiratory Ventilation, Less than 24 Consecutive Hours, Continuous Positive Airway Pressure (ICD-10-PCS; 2021-04-06)
PROC: 3E033XZ Introduction of Vasopressor into Peripheral Vein, Percutaneous Approach (ICD-10-PCS; 2021-04-10)
DX: I33.0 Acute and subacute infective endocarditis (principal); I26.99 Other pulmonary embolism without acute cor pulmonale; I50.33 Acute on chronic diastolic (congestive) heart failure; J18.9 Pneumonia, unspecified organism; A41.9 Sepsis, unspecified organism; J96.21 Acute and chronic respiratory failure with hypoxia; J96.22 Acute and chronic respiratory failure with hypercapnia; K26.4 Chronic or unspecified duodenal ulcer with hemorrhage; R65.21 Severe sepsis with septic shock; J90 Pleural effusion, not elsewhere classified; I13.0 Hypertensive heart and chronic kidney disease with heart failure and stage 1 through stage 4 chronic kidney disease, or unspecified chronic kidney disease; E87.2 Acidosis; N17.9 Acute kidney failure, unspecified; Z68.42 Body mass index [BMI] 45.0-49.9, adult; I48.20 Chronic atrial fibrillation, unspecified; E87.0 Hyperosmolality and hypernatremia; I48.92 Unspecified atrial flutter; E66.2 Morbid (severe) obesity with alveolar hypoventilation; N18.4 Chronic kidney disease, stage 4 (severe); T82.223A Leakage of biological heart valve graft, initial encounter; Z66 Do not resuscitate; Z51.5 Encounter for palliative care; Z20.822 Contact with and (suspected) exposure to COVID-19; Z78.1 Physical restraint status; M10.9 Gout, unspecified; D63.1 Anemia in chronic kidney disease; I25.10 Atherosclerotic heart disease of native coronary artery without angina pectoris; E87.6 Hypokalemia; R77.8 Other specified abnormalities of plasma proteins; F32.A Depression, unspecified; K63.5 Polyp of colon; E11.22 Type 2 diabetes mellitus with diabetic chronic kidney disease; E78.5 Hyperlipidemia, unspecified; N40.0 Benign prostatic hyperplasia without lower urinary tract symptoms; Z88.6 Allergy status to analgesic agent; Z95.2 Presence of prosthetic heart valve; Z91.02 Food additives allergy status; Z79.84 Long term (current) use of oral hypoglycemic drugs; Z79.01 Long term (current) use of anticoagulants; Z79.899 Other long term (current) drug therapy; Z95.1 Presence of aortocoronary bypass graft; Z98.890 Other specified postprocedural states; Z87.891 Personal history of nicotine dependence; Z86.711 Personal history of pulmonary embolism; Z91.19 Patient's noncompliance with other medical treatment and regimen; Y71.2 Prosthetic and other implants, materials and accessory cardiovascular devices associated with adverse incidents
CPT/HCPCS: 0241U; 32555; 36415; 36430; 36600; 71045; 71260; 74176; 76770; 80048; 80053; 80069; 80170; 81001; 82042; 82248; 82274; 82330; 82533; 82728; 82803; 82945; 82947; 83540; 83550; 83615; 83690; 83735; 83880; 83986; 84100; 84132; 84157; 84439; 84443; 84484; 85014; 85018; 85025; 85027; 85610; 85730; 86850; 86900; 86901; 86923; 87040; 87070; 87077; 87086; 87102; 87186; 87205; 88108; 88305; 88342; 89051; 93005; 93010; 93308; 94640; 94660; 94664; 94762; 96374; 96376; 99285-25; A9270; C1751; C8929; C9113; G0378; J0282; J0878; J1160; J1580; J1644; J1650; J1940; J2001; J2060; J2185; J2250; J2370; J2405; J2704; J3480; J7050; J7060; J7070; J7120; P9016; P9041; P9046; Q9957; Q9967